=== PATIENT | female | born 1940 | race Caucasian/White ===

== ENCOUNTER 2018-11-02 15:01 | Observation (INO) | payer OTHER ==
[~2018-11-02] VITALS: Ht 165.1 cm; Wt 82.0 kg
[~2018-11-02 15:01] MED LIST: AMOCLA875 PO; ASPI325 PO; ASPI325EC PO; ASPI81EC PO; CITRUS BIOFLAV120 GM; ESTRTP; Echinacea80 MG; FISH1000; FLONASE ALLERG9.9 ML; FOLI1; GLIM2; Glucophage1000 MG PO; INDO50 PO; LEVSOD50 PO; LORA.5; METFORMIN PO; METHOTREXATE IM; METHYLTREXATE INJ; Methotrexa25 MG/1 ML; Mucinex600 MG PO; OXYACE5T PO; PIOG15; PRED1; Super Calcium600 MG; Tobramycin60 MG/50 M IV; UBID10; VAGIFEM10 MCG; VICODIN 5-3001 EACH; WARF10 PO; WARF7.5 PO
[2018-11-02 16:01] LABS: BASOPHILS ABSOLUTE AUTO 0.03 K/mm3 (0.00-0.23); BASOPHILS PERCENT AUTO 1 % (0-2); EOSINOPHILS ABSOLUTE AUTO 0.06 K/mm3 (0.00-0.68); EOSINOPHILS PERCENT AUTO 1 % (0-6); Hematocrit 44.8 % (33.0-51.0); Hemoglobin 14.7 g/dL (11.5-16.0); IMMATURE GRAN ABSOLUTE AUTO 0.06 K/mm3 (0.00-0.10); IMMATURE GRAN PERCENT AUTO 1 % (0-1); LYMPHOCYTES ABSOLUTE AUTO 0.89 K/mm3 (0.84-5.20); LYMPHOCYTES PERCENT AUTO 15 % (21-46); MONOCYTES ABSOLUTE AUTO 0.33 K/mm3 (0.16-1.47); MONOCYTES PERCENT AUTO 5 % (4-13); Mean Corpuscular HGB 34.8 pg (26.0-34.0); Mean Corpuscular HGB Conc 32.8 g/dL (31.5-36.5); Mean Corpuscular Volume 106 fL (80-100); NEUTROPHILS PERCENT AUTO 77 % (41-73); NRBC ABSOLUTE 0.02 K/mm3 (0.00-0.02); NRBC Auto 0.3 /100 WBC (0.0-0.2); Platelet Count 130 K/mm3 (150-400); RDW Coefficient Variation 17.3 % (11.7-14.2); RDW Standard Deviation 65.5 fL (35.1-46.3); Red Blood Cell Count 4.22 M/mm3 (3.80-5.20); White Blood Cell Count 6.07 K/mm3 (4.00-11.30)
[2018-11-02 16:21] LABS: International Normalized Ratio 1.28; Prothrombin Time Results 13.3 Sec (9.7-11.5)
[2018-11-02 16:23] LABS: Alanine Aminotransfer (ALT/SGP 58 U/L (12-78); Albumin, Blood 3.4 g/dL (3.4-5.0); Albumin/Globulin Ratio 0.8 (0.8-1.8); Alk Phos 112 U/L (50-136); Anion Gap 10 mmol/L (6-16); Aspartate Aminotrans (AST/SGOT 50 U/L (12-37); Blood Urea Nitrogen 15 mg/dL (8-24); Bun/Creatinine Ratio 21.3 (12.0-20.0); CO2, Blood 28 mmol/L (21-32); Calcium, Blood 9.4 mg/dL (8.5-10.1); Chloride, Blood 102 mmol/L (98-108); Globulin, Blood 4.2 g/dL (2.2-4.0); Glomerular Filtration Rate >60 (60-); Glucose, Blood 131 mg/dL (70-99); Sodium, Blood 140 mmol/L (136-145); Total Protein, Blood 7.6 g/dL (6.4-8.2); Troponin I <0.015 ng/mL (0.000-0.040)
[2018-11-02] MEDS ORDERED: WARF5 PO (16:28)
[2018-11-02 16:55] LABS: Source, Urine Clean Catch
[2018-11-02 16:58] LABS: Bilirubin, Urine Neg (Neg); Blood, Urine 2+ (Neg); Glucose Qualitative, Urine Neg (Neg); Ketones, Urine 2+ (Neg); Leukocyte Esterase, Urine 3+ (Neg); Nitrite, Urine Pos (Neg); Protein, Urine 2+ (Neg); Specific Gravity, Urine 1.025 (1.003-1.022); Urobilinogen, Urine NORM (Normal)
[2018-11-02 17:40] LABS: Appearance, Urine Cloudy (Clear); Color, Urine Yellow (P-Yellow)
[2018-11-02 17:41] LABS: Bacteria Many /hpf; Squamous Epithelial Cells Mod /hpf (Few); White Blood Cells, Urine 25-50 /hpf (0-5)
[2018-11-02] MEDS ORDERED: METTREX2.5 PO (18:30)
[2018-11-02] MEDS ORDERED: WARF2.5 PO (19:13)
[2018-11-02] MEDS ORDERED: Norco 5-325 Ta1 EACH PO (19:16)
[2018-11-02] MEDS ORDERED: Hair, Skin & N1 EACH PO (21:14)
[2018-11-02] MEDS ORDERED: NATURE'S TEARS15 M1 BOTHEYES (21:15)
[2018-11-02] MEDS ORDERED: NASAL DECONGEST15 ML (21:16)
[2018-11-02 21:31] LABS: Source, Urine Catheter
[2018-11-02 21:43] LABS: Appearance, Urine Cloudy (Clear); Bilirubin, Urine Neg (Neg); Blood, Urine 2+ (Neg); Color, Urine Yellow (P-Yellow); Glucose Qualitative, Urine Neg (Neg); Ketones, Urine 1+ (Neg); Leukocyte Esterase, Urine 3+ (Neg); Nitrite, Urine Pos (Neg); Protein, Urine 2+ (Neg); Specific Gravity, Urine 1.015 (1.003-1.022); Urobilinogen, Urine NORM (Normal); pH, Urine 6.5 (5.0-8.0)
[2018-11-02 21:51] LABS: Bacteria Many /hpf; Red Blood Cells, Urine 0-2 /hpf (0-2); Squamous Epithelial Cells Few /hpf (Few); White Blood Cells, Urine 25-50 /hpf (0-5)
--- NOTE | 2018-11-03 04:30 | NUR ---
Shift summary: Pt admitted last pm with intractible back pain s/p falls left shoulder and side and UTI. Urine sample sent was positive for UTI and MD notified. Pt started on mefoxitin. Pt confused and forgetful. Pt has large multicolored bruise left shoulder which is very tender to touch. Oxycodone giving some pain relief. Pt having to get q 1 hour to urinate. Urine cloudy and foul smelling. Pt requires one person assist to get up to bed side commode. Pt refusing tylenol- states it makes her sick.
[2018-11-03 05:18] LABS: BASOPHILS ABSOLUTE AUTO 0.03 K/mm3 (0.00-0.23); BASOPHILS PERCENT AUTO 1 % (0-2); EOSINOPHILS ABSOLUTE AUTO 0.14 K/mm3 (0.00-0.68); EOSINOPHILS PERCENT AUTO 3 % (0-6); Hematocrit 37.9 % (33.0-51.0); Hemoglobin 12.2 g/dL (11.5-16.0); IMMATURE GRAN ABSOLUTE AUTO 0.03 K/mm3 (0.00-0.10); IMMATURE GRAN PERCENT AUTO 1 % (0-1); LYMPHOCYTES ABSOLUTE AUTO 1.07 K/mm3 (0.84-5.20); LYMPHOCYTES PERCENT AUTO 23 % (21-46); MONOCYTES ABSOLUTE AUTO 0.52 K/mm3 (0.16-1.47); MONOCYTES PERCENT AUTO 11 % (4-13); Mean Corpuscular HGB 34.4 pg (26.0-34.0); Mean Corpuscular HGB Conc 32.2 g/dL (31.5-36.5); Mean Corpuscular Volume 107 fL (80-100); Mean Platelet Volume 10.4 fL (9.1-12.4); NEUTROPHILS ABSOLUTE AUTO 2.91 K/mm3 (1.96-9.15); NEUTROPHILS PERCENT AUTO 62 % (41-73); NRBC ABSOLUTE 0.02 K/mm3 (0.00-0.02); NRBC Auto 0.4 /100 WBC (0.0-0.2); Platelet Count 107 K/mm3 (150-400); RDW Coefficient Variation 17.7 % (11.7-14.2); RDW Standard Deviation 65.3 fL (35.1-46.3); Red Blood Cell Count 3.55 M/mm3 (3.80-5.20)
[2018-11-03 05:39] LABS: International Normalized Ratio 1.63; Prothrombin Time Results 16.5 Sec (9.7-11.5)
[2018-11-03 05:57] LABS: Anion Gap 7 mmol/L (6-16); Blood Urea Nitrogen 14 mg/dL (8-24); Bun/Creatinine Ratio 19.1 (12.0-20.0); CO2, Blood 28 mmol/L (21-32); Calcium, Blood 8.2 mg/dL (8.5-10.1); Chloride, Blood 107 mmol/L (98-108); Creatinine, Blood 0.73 mg/dL (0.40-1.00); Glomerular Filtration Rate >60 (60-); Glucose, Blood 131 mg/dL (70-99); Potassium, Blood 3.9 mmol/L (3.5-5.5); Sodium, Blood 142 mmol/L (136-145)
--- NOTE | 2018-11-03 15:02 | NUR ---
PT IS ALERT AND ORIENTED AND COOPERATIVE WITH CARE. SHE HAS COMPLAINED OF BACK PAIN TODAY, TREATED WITH NORCO. SHE HAD A SHOWER THIS AFTERNOON. HER IS NOW IN THE ROOM WITH THE PATIENT. PT AND OT BOTH SAW THE PT THIS MORNING AND RECCOMENDED REHAB. AT THIS TIME, CASE MANAGEMENT IS WAITING FOR THE PT'S INSURANCE TO DETERMINE IF THE PT CAN DISCHARGE TO [facility] OR NOT. WILL CONTINUE TO MONITOR.
[2018-11-03] MEDS ORDERED: Senna-Docusate1 EACH PO (15:56)
[2018-11-03] MEDS ORDERED: XARELTO15 MG PO (15:56)
[2018-11-03] MEDS ORDERED: CEFU500T30 PO (16:02)
--- NOTE | 2018-11-03 16:52 | NUR ---
CALLED RN AT [facility] TO NORA REPORT ON THE PATIENT. IS AT THE BEDSIDE. TRANSPORTATION IS SCHEDULED TO PICK THE PT UP AT 1700. WILL CONTINUE TO MONITOR.
--- NOTE | 2018-11-03 17:22 | NUR ---
PT DISCHARGED AT 8432 11/03/18. TRANSPORTED BY [facility].
== END 2018-11-03 17:31 ==
LOC: ER 15:01 → MEDS 15:02 → ENPENDDIS 11-03 15:58 → MEDS 11-03 17:31
PROVIDERS: Nurse Practitioner Acute Care; Physician Assistant; ADMIT Internal Medicine
DX: S32.019A Unspecified fracture of first lumbar vertebra, initial encounter for closed fracture (principal); N39.0 Urinary tract infection, site not specified; E11.9 Type 2 diabetes mellitus without complications; M81.0 Age-related osteoporosis without current pathological fracture; M06.9 Rheumatoid arthritis, unspecified; M25.512 Pain in left shoulder; R58 Hemorrhage, not elsewhere classified; D69.6 Thrombocytopenia, unspecified; I82.90 Acute embolism and thrombosis of unspecified vein; E03.9 Hypothyroidism, unspecified; I50.32 Chronic diastolic (congestive) heart failure; Z79.01 Long term (current) use of anticoagulants; Z79.899 Other long term (current) drug therapy; Z88.0 Allergy status to penicillin; Z88.2 Allergy status to sulfonamides; Z88.5 Allergy status to narcotic agent
CPT/HCPCS: 36415; 70450; 72070; 73030; 80048; 80053; 81001; 82947; 83735; 84443; 84484; 85025; 85610; 87077; 87086; 87186; 93005; 93010; 96361; 96365; 96366; 96374; 96375; 97116; 97162; 97166; 97530; 99285-25; A9270-GY; G0378; J0694; J2405; J3010; J7030

== ENCOUNTER 2018-11-20 19:29 | Inpatient (IN) | payer OTHER ==
[~2018-11-20] VITALS: Ht 167.6 cm; Wt 75.1 kg
[~2018-11-20 19:29] MED LIST changes: +CEFU500T30 PO; +Hair, Skin & N1 EACH PO; +METTREX2.5 PO; +NASAL DECONGEST15 ML; +NATURE'S TEARS15 M1 BOTHEYES; +Norco 5-325 Ta1 EACH PO; +Senna-Docusate1 EACH PO; +WARF2.5 PO; +WARF5 PO; +XARELTO15 MG PO
[2018-11-20 21:33] LABS: Source, Urine Clean Catch
[2018-11-20 21:34] LABS: BASOPHILS ABSOLUTE AUTO 0.02 K/mm3 (0.00-0.23); BASOPHILS PERCENT AUTO 0 % (0-2); EOSINOPHILS ABSOLUTE AUTO 0.03 K/mm3 (0.00-0.68); EOSINOPHILS PERCENT AUTO 0 % (0-6); Hematocrit 41.2 % (33.0-51.0); Hemoglobin 13.4 g/dL (11.5-16.0); IMMATURE GRAN ABSOLUTE AUTO 0.02 K/mm3 (0.00-0.10); IMMATURE GRAN PERCENT AUTO 0 % (0-1); LYMPHOCYTES ABSOLUTE AUTO 0.78 K/mm3 (0.84-5.20); LYMPHOCYTES PERCENT AUTO 11 % (21-46); MONOCYTES PERCENT AUTO 4 % (4-13); Mean Corpuscular HGB Conc 32.5 g/dL (31.5-36.5); Mean Corpuscular Volume 108 fL (80-100); Mean Platelet Volume 10.6 fL (9.1-12.4); NEUTROPHILS ABSOLUTE AUTO 5.79 K/mm3 (1.96-9.15); NEUTROPHILS PERCENT AUTO 84 % (41-73); Platelet Count 333 K/mm3 (150-400); RDW Coefficient Variation 18.4 % (11.7-14.2); RDW Standard Deviation 70.9 fL (35.1-46.3); Red Blood Cell Count 3.83 M/mm3 (3.80-5.20); White Blood Cell Count 6.94 K/mm3 (4.00-11.30)
[2018-11-20 21:36] LABS: Bilirubin, Urine Neg (Neg); Blood, Urine 2+ (Neg); Glucose Qualitative, Urine Neg (Neg); Ketones, Urine 3+ (Neg); Leukocyte Esterase, Urine 3+ (Neg); Nitrite, Urine Neg (Neg); Protein, Urine 1+ (Neg); Urobilinogen, Urine NORM (Normal)
[2018-11-20 21:42] LABS: Color, Urine Yellow (P-Yellow)
[2018-11-20 21:43] LABS: Amorphous Light (0-Heavy); Appearance, Urine Clear (Clear); Bacteria Few /hpf; Red Blood Cells, Urine 0-2 /hpf (0-2); Squamous Epithelial Cells Few /hpf (Few); Transitional Epithelial Cells Few /hpf (0-Rare)
[2018-11-20 21:58] LABS: Alanine Aminotransfer (ALT/SGP 29 U/L (12-78); Albumin, Blood 3.2 g/dL (3.4-5.0); Albumin/Globulin Ratio 0.9 (0.8-1.8); Alk Phos 162 U/L (50-136); Anion Gap 6 mmol/L (6-16); Aspartate Aminotrans (AST/SGOT 34 U/L (12-37); Bilirubin, Total 0.9 mg/dL (0.1-1.0); Blood Urea Nitrogen 13 mg/dL (8-24); CO2, Blood 33 mmol/L (21-32); Calcium, Blood 8.8 mg/dL (8.5-10.1); Chloride, Blood 102 mmol/L (98-108); Creatinine, Blood 0.77 mg/dL (0.40-1.00); Globulin, Blood 3.4 g/dL (2.2-4.0); Glomerular Filtration Rate >60 (60-); Glucose, Blood 159 mg/dL (70-99); Potassium, Blood 3.9 mmol/L (3.5-5.5); Sodium, Blood 141 mmol/L (136-145); Total Protein, Blood 6.6 g/dL (6.4-8.2)
--- NOTE | 2018-11-21 02:47 | NUR ---
PT ARRIVED TO FLOOR VIA STRETCHER.
[2018-11-21 04:19] LABS: Hematocrit 42.8 % (33.0-51.0); Hemoglobin 13.8 g/dL (11.5-16.0); Mean Corpuscular HGB 35.1 pg (26.0-34.0); Mean Corpuscular HGB Conc 32.2 g/dL (31.5-36.5); Mean Corpuscular Volume 109 fL (80-100); Mean Platelet Volume 10.5 fL (9.1-12.4); Platelet Count 330 K/mm3 (150-400); RDW Standard Deviation 71.9 fL (35.1-46.3); Red Blood Cell Count 3.93 M/mm3 (3.80-5.20); White Blood Cell Count 7.97 K/mm3 (4.00-11.30)
[2018-11-21 04:38] LABS: Alanine Aminotransfer (ALT/SGP 30 U/L (12-78); Albumin, Blood 3.3 g/dL (3.4-5.0); Albumin/Globulin Ratio 0.9 (0.8-1.8); Alk Phos 171 U/L (50-136); Anion Gap 7 mmol/L (6-16); Aspartate Aminotrans (AST/SGOT 35 U/L (12-37); Blood Urea Nitrogen 11 mg/dL (8-24); Bun/Creatinine Ratio 13.8 (12.0-20.0); CO2, Blood 32 mmol/L (21-32); Chloride, Blood 101 mmol/L (98-108); Globulin, Blood 3.7 g/dL (2.2-4.0); Glomerular Filtration Rate >60 (60-); Glucose, Blood 152 mg/dL (70-99); Potassium, Blood 3.7 mmol/L (3.5-5.5); Sodium, Blood 140 mmol/L (136-145)
[2018-11-21 04:52] LABS: International Normalized Ratio 1.09; Prothrombin Time Results 11.5 Sec (9.7-11.5)
--- NOTE | 2018-11-21 07:49 | NUR ---
SHIFT SUMMARY PT NEW ADMIT TO FLOOR THIS AM & HAS HAD LITTLE SLEEP T/O NIGHT. AOX4, FOLLOWS DIRECTIONS, IS IRRITABLE W/STAFF @TIMES DUE TO NOT GETTING ENOUGH SLEEP. DENIES SOB OR ANY NAUSEA/EMESIS SINCE COMING TO FLOOR. REPORTS 5/10 PAIN IN LLQ ABD & STATES PAIN IS WORSE W/MOVEMENT. CALL LIGHT IS IN REACH.
--- NOTE | 2018-11-21 15:11 | NUR ---
PT REPORTS DIZZINESS WHEN SITTING ANS STANDING, ORTHOSTATIC VITALS COMPLETED, NOTIFIED DR BUSH, NO NEW ORDERS, WILL CONTINUE TO MONITOR
--- NOTE | 2018-11-21 17:16 | NUR ---
SHIFT SUMMARY PT A&OX4. IRRITABLE AT TIMES. PT 1 PERSON ASSIST TO BSC. PT RESTING IN BED DURING SHIFT. PT REPORTING DIZZINESS THIS AFTERNOON, ORTHOSTATIC VITALS POSITIVE, NOTIFIED DR SO, 1L BOLUS GIVEN PER ORDERS. PT REPORTS PAIN IN LEFT HIP, LOWER BACK AND TENDERNESS IN LLQ, MEDICATED PER EMAR. PT ON RA, SOB WITH EXERTION. PT REPORTS NAUSEA, PT STATES STARTS AND INCREASES WITH THE PAIN, MEDICATED PER EMAR. PT ATTEMPTS TO DRINK CLEAR LIQUIDS, APPEARS TO BE TOLERATING WELL. PT REFUSING TO WORK WITH PHYSICAL THERAPY DURING SHFIT. OTHER VSS. NO OTHER ACUTE CHANGES NOTED DURING SHIFT. WILL CONTINUE TO MONITOR UNTIL REPORT GIVNE TO ONCOMING RN.
[2018-11-22 05:34] LABS: BASOPHILS ABSOLUTE AUTO 0.05 K/mm3 (0.00-0.23); BASOPHILS PERCENT AUTO 1 % (0-2); EOSINOPHILS PERCENT AUTO 1 % (0-6); Hematocrit 39.6 % (33.0-51.0); Hemoglobin 12.8 g/dL (11.5-16.0); IMMATURE GRAN ABSOLUTE AUTO 0.06 K/mm3 (0.00-0.10); IMMATURE GRAN PERCENT AUTO 1 % (0-1); LYMPHOCYTES ABSOLUTE AUTO 1.03 K/mm3 (0.84-5.20); LYMPHOCYTES PERCENT AUTO 10 % (21-46); MONOCYTES PERCENT AUTO 6 % (4-13); Mean Corpuscular HGB 35.7 pg (26.0-34.0); Mean Corpuscular HGB Conc 32.3 g/dL (31.5-36.5); Mean Corpuscular Volume 110 fL (80-100); Mean Platelet Volume 10.7 fL (9.1-12.4); NEUTROPHILS ABSOLUTE AUTO 8.73 K/mm3 (1.96-9.15); NEUTROPHILS PERCENT AUTO 83 % (41-73); NRBC ABSOLUTE 0.02 K/mm3 (0.00-0.02); NRBC Auto 0.2 /100 WBC (0.0-0.2); Platelet Count 264 K/mm3 (150-400); RDW Coefficient Variation 18.2 % (11.7-14.2); RDW Standard Deviation 73.3 fL (35.1-46.3); Red Blood Cell Count 3.59 M/mm3 (3.80-5.20); White Blood Cell Count 10.57 K/mm3 (4.00-11.30)
[2018-11-22 05:53] LABS: Anion Gap 7 mmol/L (6-16); Blood Urea Nitrogen 8 mg/dL (8-24); Bun/Creatinine Ratio 11.7 (12.0-20.0); CO2, Blood 26 mmol/L (21-32); Calcium, Blood 8.2 mg/dL (8.5-10.1); Chloride, Blood 107 mmol/L (98-108); Creatinine, Blood 0.69 mg/dL (0.40-1.00); Glomerular Filtration Rate >60 (60-); Glucose, Blood 84 mg/dL (70-99); Potassium, Blood 3.5 mmol/L (3.5-5.5); Sodium, Blood 140 mmol/L (136-145)
--- NOTE | 2018-11-22 06:25 | NUR ---
SHIFT SUMMARY PT SLEPT WELL LAST NIGHT. AOX4. DENIES NAUSEA OR SOB. FREQUENTLY REPORTS SHE IS IN PAIN RANGING 2-5/10 IN LLQ ABD/L HIP & GROIN, MEDICATED 3X W/FENTANYL & 2X W/ULTRAM PER ORDERS. REPORTS VERY LITTLE RELIEF FROM PAIN MEDICATION & STATES "IT DOES NOT SEEM TO BE WORKING," HOWEVER WHEN REASSESSED PT REPORTS PAIN DOWN TO A 1-2/10. I DISCUSSED W/PT WHAT HER PAIN GOAL WAS & SHE REPORTED "WELL THE MEDICATION ISN'T TAKING AWAY ALL MY PAIN," I INFORMED PT WE WOULDN'T BE ABLE TO TAKE AWAY ALL HER PAIN. PT HAS BEEN INCONTINENT T/O NIGHT & APPEARS VERY UNMOTIVATED TO GET OOB OR HELP W/MUCH OF HER OWN CARE & WANTS STAFF TO PERFORM LITTLE TASKS, WHEN THE NIGHT BEFORE PT WAS ABLE TO GET UP & USE BSC W/SBA. I ASKED IF PT KNEW WHEN SHE HAD THE URGE TO USE RESTROOM & SHE SAID "YES," I ENCOURAGED PT IT WAS GOOD TO MOVE AROUND/GET UP & PERFORM SOME OF OWN CARE TO KEEP HER STRENGTH UP. CALL LIGHT IS IN REACH & I WILL CONTINUE TO MONITOR PT.
--- NOTE | 2018-11-22 18:08 | NUR ---
SHIFT SUMMARY PT A&Ox4, COOPERATIVE WITH CARE. PT RESTING IN BED DURING SHIFT, UP IN CHAIR THIS AFTERNOON AFTER WORKING WITH PT/OT. 1 PERSON SBA WITH FWW IN ROOM. PT REPORTS PAIN IN LEFT HIP AND LLQ TENDERNESS, MEDICATED PER EMAR. HIP XRAY COMPLETED DURING SHIFT. PT SOB WITH EXERTION,>90% ON RA. PT DENIES N/V, CONTINUES TO HAVE POOR APPETITE, PT ENCOURAGED TO EAT AND DRINK PLENTLY OF FLUIDS. URINE AND RECTAL SWAB COLLECTED DURING SHIFT TO START ESBL CLEARING PROCESS. ELEVATED BP NOTED, CLARIFIED THE APRESSOLINE ORDER WITH DR BUSH THE PATIENT HAD POSITIVE ORTHOSTATIC HYPOTENSION YESTERDAY, DR BUSH NO NEW ORDERS AND CONTINUE TO USE MEDICATION. OTHER VSS. NO OTHER ACUTE CHANES NOTED DURING SHIFT. WILL CONTINUE TO MONITOR UNTIL REPORT GIVEN TO ONCOMING RN.
[2018-11-23 05:12] LABS: Albumin, Blood 2.8 g/dL (3.4-5.0); Anion Gap 6 mmol/L (6-16); Blood Urea Nitrogen 6 mg/dL (8-24); Bun/Creatinine Ratio 9.4 (12.0-20.0); CO2, Blood 28 mmol/L (21-32); Calcium, Blood 8.6 mg/dL (8.5-10.1); Chloride, Blood 106 mmol/L (98-108); Creatinine, Blood 0.64 mg/dL (0.40-1.00); Glomerular Filtration Rate >60 (60-); Glucose, Blood 119 mg/dL (70-99); Phosphorus, Blood 3.8 mg/dL (2.5-4.9); Potassium, Blood 3.5 mmol/L (3.5-5.5); Sodium, Blood 140 mmol/L (136-145)
--- NOTE | 2018-11-23 06:51 | NUR ---
11/23/18 0550 SLEEPING WELL AFTER PAIN MED. VITALS BETTER THIS AM. BP DOWN. ENCOURAGE ORAL INTAKE OF FLUIDS/FOOD BUT HAS POOR MOTIVATION TO PARTICIPATE IN PLAN OF CARE.
--- NOTE | 2018-11-23 18:23 | NUR ---
SHIFT SUMMARY JABIER COMPLAINED OF PAIN IN HER L HIP/GROIN AREA AND RECEIVED TRAMADOL. WORKED WITH PT AND OT. GOT UP TO CHAIR X1 AND WALKED TO BR A COUPLE TIMES WITH SBA WITH WALKER. POOR APETITE. HAD BM THIS SHIFT, UNABLE TO GET SAMPLE. ORTHO CONSULT CALLED FOR DISPLACED CLAVICLE FRACTURE. WCTM
--- NOTE | 2018-11-24 07:47 | NUR ---
11/24/18 0600 SLEEPING WELL THIS AM. VITALS STABLE. UNEVENTFUL NIGHT. UP TO BSC PER SELF.
--- NOTE | 2018-11-24 16:57 | NUR ---
PT A/OX3, PLEASANT AND COOPERATIVE, THE PT APPEARS TO BE BREATHING EASILY ON RA AT THIS TIME, THE PT IS UP WITH MINIMAL ASSIST, THE PT WAS MEDICATED FOR PAIN X2 TODAY, THE PT IS AWAITNG CONSULT FROM ORTHOPEDIC AT THIS TIME, THE CONSULT WAS RECALLED TODAY AROUND [address] BURTON OFFICE, CALL LIGHT IN REACH WILL CONTINUE TO MONITOR AND ASESS FOR CHANGES
--- NOTE | 2018-11-25 05:18 | NUR ---
SHIFT SUMMARY: PT IS ALERT AND ORIENTED. PT IS CALM AND COOPERATIVE WITH CARE. PT CALLS APPROPRIATELY. PT IS UP INDEPENDENTLY IN THE ROOM. PT SLEPT MUCH OF THE NIGHT WHEN NOT DISTURBED. PT DENIES PAIN, NAUSEA, VOMITING, AND SOB. POSSIBLE DC TODAY. NO ACUTE CHANGES OR COMPLICATIONS THIS SHIFT. BED IN LOW POSITION, CALL LIGHT WITHIN REACH. WILL REPORT TO DAY NURSE.
[2018-11-25 05:57] LABS: BASOPHILS ABSOLUTE AUTO 0.04 K/mm3 (0.00-0.23); BASOPHILS PERCENT AUTO 1 % (0-2); EOSINOPHILS ABSOLUTE AUTO 0.19 K/mm3 (0.00-0.68); EOSINOPHILS PERCENT AUTO 3 % (0-6); Hematocrit 42.4 % (33.0-51.0); IMMATURE GRAN ABSOLUTE AUTO 0.03 K/mm3 (0.00-0.10); IMMATURE GRAN PERCENT AUTO 1 % (0-1); LYMPHOCYTES ABSOLUTE AUTO 1.09 K/mm3 (0.84-5.20); LYMPHOCYTES PERCENT AUTO 18 % (21-46); MONOCYTES ABSOLUTE AUTO 0.97 K/mm3 (0.16-1.47); MONOCYTES PERCENT AUTO 16 % (4-13); Mean Corpuscular HGB 35.7 pg (26.0-34.0); Mean Corpuscular Volume 108 fL (80-100); Mean Platelet Volume 11.1 fL (9.1-12.4); NEUTROPHILS ABSOLUTE AUTO 3.75 K/mm3 (1.96-9.15); NEUTROPHILS PERCENT AUTO 62 % (41-73); Platelet Count 172 K/mm3 (150-400); RDW Coefficient Variation 18.6 % (11.7-14.2); Red Blood Cell Count 3.92 M/mm3 (3.80-5.20); White Blood Cell Count 6.07 K/mm3 (4.00-11.30)
[2018-11-25 06:21] LABS: Albumin, Blood 2.9 g/dL (3.4-5.0); Anion Gap 2 mmol/L (6-16); Blood Urea Nitrogen 7 mg/dL (8-24); Bun/Creatinine Ratio 9.5 (12.0-20.0); CO2, Blood 33 mmol/L (21-32); Calcium, Blood 8.7 mg/dL (8.5-10.1); Chloride, Blood 103 mmol/L (98-108); Creatinine, Blood 0.74 mg/dL (0.40-1.00); Glomerular Filtration Rate >60 (60-); Glucose, Blood 127 mg/dL (70-99); Phosphorus, Blood 3.8 mg/dL (2.5-4.9); Potassium, Blood 3.1 mmol/L (3.5-5.5); Sodium, Blood 138 mmol/L (136-145)
[2018-11-25] MEDS ORDERED: BISA10S PR (09:02)
[2018-11-25] MEDS ORDERED: DOCU100 PO (09:02)
[2018-11-25] MEDS ORDERED: ONDA4ODT MM (09:03)
[2018-11-25] MEDS ORDERED: Tears Again15 ML BOTHEYES (09:04)
[2018-11-25] MEDS ORDERED: Florastor250 MG PO (09:04)
[2018-11-25] MEDS ORDERED: Calcitonin-Sal3.7 ML (09:05)
[2018-11-25] MEDS ORDERED: Micro-K10 MEQ PO (09:06)
[2018-11-25] MEDS ORDERED: CALCIUM 500 +1 EAC3 PO (09:07)
--- NOTE | 2018-11-25 11:44 | NUR ---
PT DISCHARGED PT VERBALIZED UNDERSTANDING OF THE DC INSTRUCTIONS, THE PTS PERSCRIPTIONS WERE FAXED TO [facility] REQUESTED, PRESCRIPTIONS WERE GIVEN TO THE PT ALSO, HOME HEALTH WAS NOTIFIED BY CARE MANAGMENT, THE PT WAS TRANSFERED VIA WHEELCHAIR ACCOMPANIED BY [facility] AND , THE PT WAS A/OX3 AND APPEARED TO BE BREATHING EASILY ON RA
== END 2018-11-25 11:28 | disposition home health service (06) | DRG 392 ==
LOC: ER 19:29 → MEDS 19:30 → ER 19:30 → MEDS 11-21 02:30 → ENPENDDIS 11-25 10:44 → MEDS 11-25 11:28
PROVIDERS: Emergency Medicine; Family Medicine; Internal Medicine; ADMIT Internal Medicine
DX: K52.9 Noninfective gastroenteritis and colitis, unspecified (principal); S32.019A Unspecified fracture of first lumbar vertebra, initial encounter for closed fracture; I50.32 Chronic diastolic (congestive) heart failure; G89.11 Acute pain due to trauma; E03.9 Hypothyroidism, unspecified; E11.9 Type 2 diabetes mellitus without complications; M06.9 Rheumatoid arthritis, unspecified; Z87.440 Personal history of urinary (tract) infections; W19.XXXA Unspecified fall, initial encounter; Z91.81 History of falling; Z87.891 Personal history of nicotine dependence; S42.032A Displaced fracture of lateral end of left clavicle, initial encounter for closed fracture; E86.0 Dehydration; Z66 Do not resuscitate
CPT/HCPCS: 36415; 73502; 74177; 80048; 80053; 80069; 81001; 83605; 83690; 85025; 85027; 85610; 87081; 87086; 96374-59; 96375; 96376; 97162; 97166; 97530; 97535; 99285-25; J0360; J2405; J3010; J7030; Q9967

== ENCOUNTER 2019-05-31 19:29 | Inpatient (IN) | payer OTHER ==
[~2019-05-31] VITALS: Ht 157.5 cm; Wt 74.7 kg
[~2019-05-31 19:29] MED LIST changes: +ARTIFICIAL TEA1 EACH BOTHEYES; +BISA10S PR; +CALCIUM 500 +1 EAC3 PO; +Calcitonin-Sal3.7 ML; +DOCU100 PO; +Florastor250 MG PO; +Micro-K10 MEQ PO; +ONDA4ODT MM
[2019-05-31 21:13] LABS: BASOPHILS ABSOLUTE AUTO 0.04 K/mm3 (0.00-0.23); BASOPHILS PERCENT AUTO 1 % (0-2); EOSINOPHILS ABSOLUTE AUTO 0.04 K/mm3 (0.00-0.68); EOSINOPHILS PERCENT AUTO 1 % (0-6); Hematocrit 44.7 % (33.0-51.0); Hemoglobin 14.1 g/dL (11.5-16.0); Mean Corpuscular HGB 35.7 pg (26.0-34.0); Mean Corpuscular HGB Conc 31.5 g/dL (31.5-36.5); Mean Corpuscular Volume 113 fL (80-100); Mean Platelet Volume 11.9 fL (9.1-12.4); Platelet Count 142 K/mm3 (150-400); RDW Coefficient Variation 15.7 % (11.7-14.2); RDW Standard Deviation 66.3 fL (35.1-46.3); Red Blood Cell Count 3.95 M/mm3 (3.80-5.20); White Blood Cell Count 7.63 K/mm3 (4.00-11.30)
[2019-05-31 21:14] LABS: IMMATURE GRAN ABSOLUTE AUTO 0.02 K/mm3 (0.00-0.10); IMMATURE GRAN PERCENT AUTO 0 % (0-1); LYMPHOCYTES ABSOLUTE AUTO 0.82 K/mm3 (0.84-5.20); LYMPHOCYTES PERCENT AUTO 11 % (21-46); MONOCYTES ABSOLUTE AUTO 0.22 K/mm3 (0.16-1.47); MONOCYTES PERCENT AUTO 3 % (4-13); NEUTROPHILS ABSOLUTE AUTO 6.49 K/mm3 (1.96-9.15); NEUTROPHILS PERCENT AUTO 85 % (41-73)
[2019-05-31 21:26] LABS: Alanine Aminotransfer (ALT/SGP 39 U/L (12-78); Albumin, Blood 3.2 g/dL (3.4-5.0); Albumin/Globulin Ratio 0.8 (0.8-1.8); Alk Phos 113 U/L (50-136); Anion Gap 5 mmol/L (6-16); Aspartate Aminotrans (AST/SGOT 42 U/L (12-37); Bilirubin, Total 0.6 mg/dL (0.1-1.0); Blood Urea Nitrogen 19 mg/dL (8-24); Bun/Creatinine Ratio 25.9 (12.0-20.0); CO2, Blood 27 mmol/L (21-32); Calcium, Blood 8.7 mg/dL (8.5-10.1); Chloride, Blood 107 mmol/L (98-108); Creatinine, Blood 0.73 mg/dL (0.40-1.00); Glomerular Filtration Rate >60 (60-); Glucose, Blood 148 mg/dL (70-99); Potassium, Blood 4.3 mmol/L (3.5-5.5); Sodium, Blood 139 mmol/L (136-145); Total Protein, Blood 7.2 g/dL (6.4-8.2)
[2019-05-31 21:28] LABS: International Normalized Ratio 1.21; Prothrombin Time Results 12.6 Sec (9.7-11.5)
[2019-05-31] MEDS ORDERED: SENN187 PO (22:04)
[2019-05-31] MEDS ORDERED: VITAMIN D31000 UNI2 PO (22:05)
[2019-05-31] MEDS ORDERED: WARF5 PO (22:06)
--- NOTE | 2019-06-01 02:45 | NUR ---
2335 PT ADMITTED TO ROOM 313 PER CART FROM ER, PT POOR HISTORIAN AT TIMES DURING ASSESSMENT AND AT TIMES UNSURE IF SHE TOOK SOME MEDS OR DID NOT. HEPARIN INFUSING AT 15UNITS/KG/HR OR 18ML/HR PER PUMP, LLE + 3 EDEMA AND ELEVATED ON TWO PILLOWS, DENIES NEED FOR PAIN MEDS. PT WOULD BENEFIT FROM HAVING HOME HEALTH CARE REFERRAL AT DISCHARGE TO ASSIST WITH SETTING UP ALL MEDICATIONS VIA WEEKLY PILL BOX CHIEF EXECUTIVE.
--- NOTE | 2019-06-01 04:13 | NUR ---
SHIFT SUMMARY: 78 Y/O FEMALE RESTED COMFORTABLY ALL SHIFT, NO S/S BLEEDING NOTED, HEPARIN CONTINUES TO INFUSE AT 18ML/HR, LLE HAS +3 EDEMA NOTED WITH EXTREMITY ELEVATED ON TWO PILLOWS, BED ALARM APPLIED, BED LOW POSITION WITH CALL LIGHT AT SIDE.
[2019-06-01 05:19] LABS: BASOPHILS ABSOLUTE AUTO 0.04 K/mm3 (0.00-0.23); BASOPHILS PERCENT AUTO 1 % (0-2); EOSINOPHILS PERCENT AUTO 2 % (0-6); Hematocrit 39.4 % (33.0-51.0); Hemoglobin 12.6 g/dL (11.5-16.0); Mean Corpuscular Volume 113 fL (80-100); Platelet Count 117 K/mm3 (150-400); RDW Coefficient Variation 15.7 % (11.7-14.2); RDW Standard Deviation 64.6 fL (35.1-46.3); White Blood Cell Count 5.88 K/mm3 (4.00-11.30)
[2019-06-01 05:22] LABS: IMMATURE GRAN ABSOLUTE AUTO 0.01 K/mm3 (0.00-0.10); IMMATURE GRAN PERCENT AUTO 0 % (0-1); LYMPHOCYTES ABSOLUTE AUTO 1.16 K/mm3 (0.84-5.20); LYMPHOCYTES PERCENT AUTO 20 % (21-46); MONOCYTES ABSOLUTE AUTO 0.35 K/mm3 (0.16-1.47); MONOCYTES PERCENT AUTO 6 % (4-13); NEUTROPHILS ABSOLUTE AUTO 4.22 K/mm3 (1.96-9.15); NEUTROPHILS PERCENT AUTO 72 % (41-73)
[2019-06-01 05:43] LABS: Anion Gap 6 mmol/L (6-16); Blood Urea Nitrogen 17 mg/dL (8-24); Bun/Creatinine Ratio 22.3 (12.0-20.0); CO2, Blood 26 mmol/L (21-32); Calcium, Blood 8.3 mg/dL (8.5-10.1); Chloride, Blood 110 mmol/L (98-108); Creatinine, Blood 0.76 mg/dL (0.40-1.00); Glomerular Filtration Rate >60 (60-); Glucose, Blood 150 mg/dL (70-99); Potassium, Blood 3.9 mmol/L (3.5-5.5); Sodium, Blood 142 mmol/L (136-145)
--- NOTE | 2019-06-01 11:23 | NUR ---
Patient is lying in bed and alert. Patient shares about her meical issues, her family history and her Mandaeism background. I listen empathically and provide prayer. Patient responds well and voices appreciation for the visit.
--- NOTE | 2019-06-01 16:52 | NUR ---
SHIFT SUMMARY PATIENT DENIES PAIN IN LEG EXCEPT WHEN PALPATED. DENIES NAUSEA AND SHORTNESS OF BREATH. PATIENT UP SBA TO BEDSIDE COMMODE. PATIENT HAD FAMILY AT BEDSIDE TODAY. DR. JOHNSON CONSULTED ON PATIENT. PATIENT TO HAVE FILTER PLACED TODAY AND POSSIBLY CLOTS REMOVED TOMORROW. PATIENT IN PROCEDURE NOW.
--- NOTE | 2019-06-01 18:06 | NUR ---
TRANSFER PATIENT TRANSFERING TO PCU AFTER PROCEDURE COMPLETED. BELONGINGS TRANSFERED TO PCU.
--- NOTE | 2019-06-01 18:29 | NUR ---
The pt was received from [facility] this evening, vital signs stable, alert, oriented, and pleasantly conversant. Right groin site was visualized, noted to have clean, dry and intact dressing of gauze secured with clear tegederm. No signs of bleeding, hematoma, swelling, or bruising. Distal pulses are palpable. The pt initially denied any pain, but then said that her back was aching. She was placed in reverse trendelenberg position, with the right leg still imobilized and lying flat, and she said that this gave her relief right away.
--- NOTE | 2019-06-02 04:59 | NUR ---
SHIFT SUMMARY PT SLEEPING IN ROOM COMFORTABLY AT THIS TIME. NO ACUTE CHANGES IN STATUS T/O NIGHT PT SLEPT WELL, AND CALLED APPROPRIATELY. DENIED CP T/O NIGHT. PT FEMORAL VEIN ACCESS WNL NO DRAINAGE NOTED ON BANDAGE. PT REPORTS NO PAIN, AND SITE BREANNE OF DISOCLORATION OR HEMATOMA. PT ABLE TO STAND AND USE BSC W/ SBA. RESP EVEN UNLABORED ON RA W/ SATS >92%. DENIED ANY SOB. HEPARIN GTT INFUSING IN PIV. CALL LIGHT IN REACH.
--- NOTE | 2019-06-02 07:38 | NUR ---
ASSUMED CARE OF PT- REPORT RECIEVED FROM NIGHT TAZ CAO. PT ALERT AND ORIENTED WITH NO S&S OF DISTRESS NOTED NSR ON TELE. PER REPORT PT HAD A IVC FILTER PLACED YESTERDAY AND THE PLAN IS FOR HER TO [facility]ULAR[facility]ATION OF THE LEFT LEG. PT IS POSSITIVE FOR A DVT IN THAT LEG. PT CURRENTLY ON A HEPRIN DRIP AT 18 UNITS PER KG/HR. RATE CONFIRMED WITH [facility] BY PHONE, TAZ CAO PRESENT. PT HAS NO C/O PAIN AT THIS TIME WILL CONTINUE TO MONITOR. PT CONCERNED THAT HER WILL NOT BE HERE IN TIME FOR HER PROCEDURE, THEY LIVE IN [place] AND IT IS A LONG DRIVE, SHE WOULD LIKE TO KNOW A TIME FOR THE PROCEDURE SOON POSSIBLE.
--- NOTE | 2019-06-02 11:45 | NUR ---
Patient is lying in bed and alert. Patient tells me that she is going to have a second surgery today. Patient is doing well in the process but appreciates prayer. Patient tells me more about her family, her 64 year marriage her many medical issues through the years. Patient is kind and thoughful. I listen empathically and provide a calming prasence and prayer. Patient responds well and voices appreciation for my visit.
--- NOTE | 2019-06-02 12:57 | NUR ---
SPOKE TO DR LACY PT IS NPO PRE PROCEDURE AT THIS TIME. NEW ORDER PLACED.
[2019-06-02 18:49] LABS: International Normalized Ratio 1.16; Prothrombin Time Results 12.1 Sec (9.7-11.5)
--- NOTE | 2019-06-02 18:51 | NUR ---
SHIFT SUMMARY- PT ALERT AND ORIENTED, SPOUSE AT THE BEDSIDE. PT HAS BEEN NPO T/O THE SHIFT BG 129 AT BREAKFAST 128 AT LUNCH AND 100 AT DINNER REQUIRING NO COVERAGE. SPOKE TO DR LACY THIS EVENING DR JOHNSON UNABLE TO TAKE THE PT TO THE MERCHANDISE COORDINATOR PLANNED. DR LACY RESTARTING PT COUMADIN. ONCE SHE REACHES A THERAPUDIC LEVEL PT WILL BE DISCHARGED TO SEE DR JOHNSON OUT PT. PT HAS BEEN INFORMED OF THIS. DINNER TRAY ORDERED.
[2019-06-03 04:10] LABS: BASOPHILS ABSOLUTE AUTO 0.07 K/mm3 (0.00-0.23); BASOPHILS PERCENT AUTO 1 % (0-2); EOSINOPHILS ABSOLUTE AUTO 0.18 K/mm3 (0.00-0.68); EOSINOPHILS PERCENT AUTO 4 % (0-6); Hemoglobin 12.8 g/dL (11.5-16.0); IMMATURE GRAN ABSOLUTE AUTO 0.03 K/mm3 (0.00-0.10); IMMATURE GRAN PERCENT AUTO 1 % (0-1); LYMPHOCYTES ABSOLUTE AUTO 1.44 K/mm3 (0.84-5.20); LYMPHOCYTES PERCENT AUTO 28 % (21-46); MONOCYTES PERCENT AUTO 12 % (4-13); Mean Corpuscular Volume 112 fL (80-100); Mean Platelet Volume 11.4 fL (9.1-12.4); NEUTROPHILS ABSOLUTE AUTO 2.86 K/mm3 (1.96-9.15); NEUTROPHILS PERCENT AUTO 55 % (41-73); Platelet Count 120 K/mm3 (150-400); RDW Coefficient Variation 15.4 % (11.7-14.2); RDW Standard Deviation 64.6 fL (35.1-46.3); Red Blood Cell Count 3.56 M/mm3 (3.80-5.20); White Blood Cell Count 5.18 K/mm3 (4.00-11.30)
[2019-06-03 04:24] LABS: International Normalized Ratio 1.14; Prothrombin Time Results 11.9 Sec (9.7-11.5)
[2019-06-03 04:30] LABS: Bun/Creatinine Ratio 15.1 (12.0-20.0); Creatinine, Blood 1.06 mg/dL (0.40-1.00); Potassium, Blood 4.2 mmol/L (3.5-5.5)
--- NOTE | 2019-06-03 05:26 | NUR ---
SHIFT SUMMARY PT SLEEPING IN ROOM COMFORTABLY AT THIS TIME. NO ACUTE CHANGES IN STATUS T/O NIGHT. PT SLEPT WELL AND WOKE EASILY TO VERBAL. PT DENIED ANY CP OR SOB. RESP EVEN UNLABORED ON RA W/ SATS >92%. HEPARIN GTT CONT TO INFUSE IN PIV. PT STARTED ON HOME DOSE OF COUMADIN LAST NIGHT. PER PT HOME DOSE IS DIFFERENT AHT PREVIOUS MED CLAIM HISTORY. WILL INFORM DAY RN OF DISRECPENCY AND ABOUT NEED TO CALL PROVIDER OFFICE TO CLARIFY DOSE. DENIED OTHER NEEDS. PT SBA TO BSC, L LEG STILL EDEMATOUS D/T BLOOD CLOT. CALL LIGHT IS IN REACH.
--- NOTE | 2019-06-03 09:00 | NUR ---
PT READING IN BED; A&O X 3, FORGETFUL AT TIMES; LUNGS SOUNDS CLEAR; BREATHS EVEN AND UNLABORED; NO COUGH PRESENT; L LEG WARM AND SWOLLEN; VSS; PT DENIES CHEST PAIN; DENIES PAIN; HEPARIN GTT AT 20U/KG/HR; CALL LIGHT IN REACH, BED IN LOWEST POSITION; WILL CONTINUE TO MONITOR AND ASSESS
--- NOTE | 2019-06-03 14:30 | NUR ---
PT HAS VISITORS AT BEDSIDE; PT TALKING SHE SITS IN BED
--- NOTE | 2019-06-03 18:21 | NUR ---
PT WORKING ON CROSSWORD IN BED; PT ATE DINNER WELL; PT IS CALM AND COMPLIANT; CALL LIGHT IN REACH; WILL CONTINUE TO MONITOR UNTIL HAND OF TO KYARA MCGHEE
[2019-06-03 18:57] LABS: Source, Urine Voided
[2019-06-03 19:03] LABS: Bilirubin, Urine Neg (Neg); Blood, Urine 2+ (Neg); Glucose Qualitative, Urine Neg (Neg); Ketones, Urine Neg (Neg); Leukocyte Esterase, Urine 2+ (Neg); Nitrite, Urine Pos (Neg); Protein, Urine Neg (Neg); Specific Gravity, Urine 1.015 (1.003-1.022); Urobilinogen, Urine NORM (Normal)
[2019-06-03 19:12] LABS: Appearance, Urine Hazy (Clear); Color, Urine Yellow (P-Yellow)
[2019-06-03 19:13] LABS: Bacteria Many /hpf; Squamous Epithelial Cells Few /hpf (Few)
--- NOTE | 2019-06-03 19:58 | NUR ---
78 Y/O FEMALE RESTING COMFORTABLY IN BED, RIGHT GROIN TEGADERM INTACT WITH SURROUNDING SKIN AND TISSUE SOFT AND WITHOUT S/S INFECTION, HAPPY AND COOPERATIVE, DENIES PAIN OR NAUSEA, ABLE TO FOLLOW ALL SIMPLE VERBAL COMMANDS, HEPARIN AT 24ML/HR VIA PUMP IN LFA (NO BLEEDING NOTED).
--- NOTE | 2019-06-04 04:34 | NUR ---
SHIFT SUMMARY: 78 Y/O FEMALE RESTED COMFORTABLY ALL SHIFT WITH NO C/O PAIN, NAUSEA, NO BLEEDING NOTED, HEPARIN CONTINUES TO INFUSE AT 24ML/HR, PTS LFA OLD IV SITE SLIGHTLY RED, WARM AND TENDER TO TOUCH WITH ICE PACK APPLIED TO SITE (BAILEY RN, CHARGE NURSE ADVISED AND HE OBSERVED SITE), PT VOICED SHE EAGER TO RETURN HOME NEAR FUTURE, BED ALARM APPLIED, BED LOW POSITION WITH CALL LIGHT AT SIDE.
[2019-06-04 04:36] LABS: BASOPHILS ABSOLUTE AUTO 0.05 K/mm3 (0.00-0.23); BASOPHILS PERCENT AUTO 1 % (0-2); EOSINOPHILS ABSOLUTE AUTO 0.15 K/mm3 (0.00-0.68); EOSINOPHILS PERCENT AUTO 3 % (0-6); Hematocrit 42.4 % (33.0-51.0); Hemoglobin 13.7 g/dL (11.5-16.0); IMMATURE GRAN ABSOLUTE AUTO 0.02 K/mm3 (0.00-0.10); IMMATURE GRAN PERCENT AUTO 0 % (0-1); LYMPHOCYTES ABSOLUTE AUTO 1.24 K/mm3 (0.84-5.20); LYMPHOCYTES PERCENT AUTO 26 % (21-46); MONOCYTES ABSOLUTE AUTO 0.66 K/mm3 (0.16-1.47); MONOCYTES PERCENT AUTO 14 % (4-13); Mean Corpuscular HGB 35.1 pg (26.0-34.0); Mean Corpuscular HGB Conc 32.3 g/dL (31.5-36.5); Mean Platelet Volume 11.3 fL (9.1-12.4); NEUTROPHILS ABSOLUTE AUTO 2.73 K/mm3 (1.96-9.15); NEUTROPHILS PERCENT AUTO 56 % (41-73); Platelet Count 145 K/mm3 (150-400); RDW Coefficient Variation 15.7 % (11.7-14.2); RDW Standard Deviation 61.8 fL (35.1-46.3); White Blood Cell Count 4.85 K/mm3 (4.00-11.30)
[2019-06-04 04:37] LABS: Mean Corpuscular Volume 109 fL (80-100)
[2019-06-04 04:53] LABS: International Normalized Ratio 1.45; Prothrombin Time Results 14.9 Sec (9.7-11.5)
[2019-06-04 04:56] LABS: Bun/Creatinine Ratio 16.5 (12.0-20.0); Calcium, Blood 9.4 mg/dL (8.5-10.1); Creatinine, Blood 1.09 mg/dL (0.40-1.00); Potassium, Blood 4.4 mmol/L (3.5-5.5)
--- NOTE | 2019-06-04 10:11 | NUR ---
PT PLEASANT TALKATIVE. DENIES PAIN A/O X3. TALKED ABOUT PLACE OUT OF [facility]. L LEG DVT, STILL SWOLLEN. +2 , SOME PAINFUL. ON HEPARIN DRIP RATE PER EMAR. PRESENTS CONCRETE. SOME FORGETFUL AT TIMES PER BELL RN. H/R REG, NO MURMER NOTED. PER TELE NSR AT 78. LUNGS CLEAR T/O. RESP EASY, UNLABORED. ON R/A. BT X4 LAST BM THIS AM. VOIDS INCONT AT TIMES, FREQUENTCY. 1 ASSST TO BSC. BED IN LOW POSITION , CALL LITE IN REACH, CALLS APPROP
--- NOTE | 2019-06-04 12:38 | NUR ---
1130 REPORT CALLED TO HANNY FERNANDEZ RN. MEDICAL. PT MOVING TO MED NO TELE PER DR LACY. ADVISED IS ON HEPARIN DRIP AND NEXT DRAW IS SET FOR 13:00. PT MOVED AFTER LUNCH. AT 1230
--- NOTE | 2019-06-04 12:45 | NUR ---
Assumed care of patient Patient arrived to unit via bed with heparin infusing. A/Ox3. Transferred from PCU and received report from TAZ Rodriguez. Heparin infusion verified with TAZ Verma. IV patent. Pt settled in room and oriented to call light.
--- NOTE | 2019-06-04 17:10 | NUR ---
Shift Summary A/Ox3. Pleasant and cooperative with care. Received in report pt can become forgetful at times. Calls appropriately using call light. Heparin infusing at this time per EMAR. 1P SBA to BSC. Plan is to get INR to therapeutic levels before discharging. No other acute changes this shift.
[2019-06-05 04:37] LABS: Hematocrit 39.8 % (33.0-51.0); Hemoglobin 12.7 g/dL (11.5-16.0)
[2019-06-05 04:53] LABS: International Normalized Ratio 1.98; Prothrombin Time Results 19.7 Sec (9.7-11.5)
--- NOTE | 2019-06-05 05:41 | NUR ---
SHIFT SUMMARY: PT STABLE T/O SHIFT. VS WNL. A&O X4. HEPARIN GTT INFUSING PER EMAR. PTT 45.8 THIS MORNING WITH INR OF 1.98. DOSE TITRATED PER PHARMACY. PT SBA TO BSC. VOIDING WELL. WAITING FOR THERAPEUTIC INR LEVEL UNTIL PT CAN FOLLOW UP OUTPATIENT FOR THROMBECTOMY WITH DR. JOHNSON. NO OTHER CHANGES THIS SHIFT.
[2019-06-05] MEDS ORDERED: DOXY100 PO (11:16)
[2019-06-05] MEDS ORDERED: FOLI1 PO (11:17)
[2019-06-05] MEDS ORDERED: Florastor250 MG PO (11:18)
--- NOTE | 2019-06-05 11:43 | NUR ---
Discharge Summary Pt discharged to home via personal vehicle, will be escorted by MATERIAL CONTROL SUPERVISOR. Reviewed discharge instructions and education with patient, gave time for questions. Meds faxed to [facility] in [facility] per pt request d/t preferred pharmacy being closed today. IV removed, WNL. at bedside transporting patient home. Personal belongings sent home with patient. She remains A/O x 3 and pleasant/cooperative. Has been calling appropriately. No other concerns.
[2019-06-07] MEDS ORDERED: XARELTO15 MG PO (16:08)
== END 2019-06-05 12:23 | disposition home or self-care (01) | DRG 253 ==
LOC: ER 19:29 → MEDS 22:17 → PCU 22:17 → MEDS 23:42 → PCU 06-01 17:49 → MEDS 06-04 13:06
PROVIDERS: Emergency Medicine; Internal Medicine; Nurse Practitioner Acute Care; Radiology Diagnostic Radiology; ADMIT Internal Medicine
PROC: 06H00DZ Insertion of Intraluminal Device into Inferior Vena Cava, Open Approach (ICD-10-PCS; principal; 2019-06-02)
DX: I82.402 Acute embolism and thrombosis of unspecified deep veins of left lower extremity (principal); I50.32 Chronic diastolic (congestive) heart failure; M06.9 Rheumatoid arthritis, unspecified; E03.9 Hypothyroidism, unspecified; Z87.891 Personal history of nicotine dependence; Z96.643 Presence of artificial hip joint, bilateral; Z79.01 Long term (current) use of anticoagulants; E66.9 Obesity, unspecified; Z68.30 Body mass index [BMI] 30.0-30.9, adult; E11.9 Type 2 diabetes mellitus without complications; Z79.84 Long term (current) use of oral hypoglycemic drugs; K59.00 Constipation, unspecified
CPT/HCPCS: 36415; 37191; 76937; 80048; 80053; 81001; 82947; 85014; 85018; 85025; 85610; 85730; 87077; 87086; 87186; 93005; 93010; 96365; 96376; 97162; 97530; 99152; 99153; 99285-25; A9270-GY; C1769; C1880; J1644; J2250; J3010; J7030; Q9967

== ENCOUNTER 2020-06-29 18:57 | Inpatient (IN) | payer OTHER ==
[~2020-06-29] VITALS: Ht 154.9 cm; Wt 72.6 kg
[~2020-06-29 18:57] MED LIST changes: -ARTIFICIAL TEA1 EACH BOTHEYES; +ARTIFICIAL TEAR15 M4 BOTHEYES; +DOXY100 PO; +FOLI1 PO; -Micro-K10 MEQ PO; +POTA10T PO; +SENN187 PO; +VITAMIN D325 MC3 PO
[2020-06-29 20:11] LABS: BASOPHILS ABSOLUTE AUTO 0.03 K/mm3 (0.00-0.23); BASOPHILS PERCENT AUTO 1 % (0-2); EOSINOPHILS ABSOLUTE AUTO 0.01 K/mm3 (0.00-0.68); EOSINOPHILS PERCENT AUTO 0 % (0-6); Hematocrit 52.2 % (33.0-51.0); Hemoglobin 16.4 g/dL (11.5-16.0); IMMATURE GRAN ABSOLUTE AUTO 0.01 K/mm3 (0.00-0.10); IMMATURE GRAN PERCENT AUTO 0 % (0-1); LYMPHOCYTES PERCENT AUTO 18 % (21-46); MONOCYTES ABSOLUTE AUTO 0.47 K/mm3 (0.16-1.47); MONOCYTES PERCENT AUTO 14 % (4-13); Mean Corpuscular HGB 31.5 pg (26.0-34.0); Mean Corpuscular HGB Conc 31.4 g/dL (31.5-36.5); Mean Corpuscular Volume 100 fL (80-100); Mean Platelet Volume 12.1 fL (9.1-12.4); NEUTROPHILS ABSOLUTE AUTO 2.15 K/mm3 (1.96-9.15); NEUTROPHILS PERCENT AUTO 66 % (41-73); Platelet Count 110 K/mm3 (150-400); RDW Coefficient Variation 15.2 % (11.7-14.2); White Blood Cell Count 3.27 K/mm3 (4.00-11.30)
[2020-06-29 20:24] LABS: Troponin I <0.015 ng/mL (0.000-0.040)
[2020-06-29 20:25] LABS: Alanine Aminotransfer (ALT/SGP 33 U/L (12-78); Albumin, Blood 3.2 g/dL (3.4-5.0); Albumin/Globulin Ratio 0.7 (0.8-1.8); Alk Phos 149 U/L (50-136); Anion Gap 9 mmol/L (6-16); Aspartate Aminotrans (AST/SGOT 67 U/L (12-37); Bilirubin, Total 0.8 mg/dL (0.1-1.0); Blood Urea Nitrogen 16 mg/dL (8-24); Bun/Creatinine Ratio 14.5 (12.0-20.0); CO2, Blood 22 mmol/L (21-32); Calcium, Blood 8.7 mg/dL (8.5-10.1); Chloride, Blood 104 mmol/L (98-108); Globulin, Blood 4.3 g/dL (2.2-4.0); Glomerular Filtration Rate 51 (60-); Glucose, Blood 137 mg/dL (70-99); Sodium, Blood 135 mmol/L (136-145); Total Protein, Blood 7.5 g/dL (6.4-8.2)
[2020-06-29 20:26] LABS: International Normalized Ratio 0.98; Prothrombin Time Results 10.5 Sec (9.7-11.5)
[2020-06-29 21:23] LABS: SARS-Cov-2 (COVID-19) PCR, MMC Positive (NEGATIVE)
[2020-06-29 21:24] LABS: Influenza A, PCR Negative (NEGATIVE); Influenza B, PCR Negative (NEGATIVE); Resp Syncytial Virus, PCR Negative (NEGATIVE)
--- NOTE | 2020-06-30 00:02 | NUR ---
REPORT FROM TAZ SANTANA IN ER. PATIENT ON HER WAY TO ROOM 311
--- NOTE | 2020-06-30 01:00 | NUR ---
Patient arrived in room 311 at same time she was informed that her who was admitted into ICU tonight with severe respiratory effects of COVID wishes to be made comfort care. Joann appears to understand his wishes, however is very upset about his decision. She got to speak with HEAD OF BIOLOGY as well as speaking with her right after she arrived to room.
[2020-06-30 05:29] LABS: BASOPHILS ABSOLUTE AUTO 0.01 K/mm3 (0.00-0.23); BASOPHILS PERCENT AUTO 0 % (0-2); EOSINOPHILS PERCENT AUTO 0 % (0-6); Hematocrit 47.1 % (33.0-51.0); Hemoglobin 14.7 g/dL (11.5-16.0); IMMATURE GRAN ABSOLUTE AUTO 0.01 K/mm3 (0.00-0.10); IMMATURE GRAN PERCENT AUTO 0 % (0-1); LYMPHOCYTES ABSOLUTE AUTO 0.69 K/mm3 (0.84-5.20); LYMPHOCYTES PERCENT AUTO 23 % (21-46); MONOCYTES ABSOLUTE AUTO 0.48 K/mm3 (0.16-1.47); MONOCYTES PERCENT AUTO 16 % (4-13); Mean Corpuscular HGB 31.3 pg (26.0-34.0); Mean Corpuscular HGB Conc 31.2 g/dL (31.5-36.5); Mean Corpuscular Volume 100 fL (80-100); NEUTROPHILS ABSOLUTE AUTO 1.85 K/mm3 (1.96-9.15); NEUTROPHILS PERCENT AUTO 61 % (41-73); Platelet Count 104 K/mm3 (150-400); RDW Coefficient Variation 15.1 % (11.7-14.2); RDW Standard Deviation 54.5 fL (35.1-46.3); Red Blood Cell Count 4.69 M/mm3 (3.80-5.20); White Blood Cell Count 3.04 K/mm3 (4.00-11.30)
--- NOTE | 2020-06-30 05:41 | NUR ---
ASSET CARD CLERK SUMMARY Patient arrived from ER without complaints of discomfort, SOB, nausea or diarrhea. Upon arriving to room 311, patient received a call from ICU gently informing her (in my presence) that her , who was admitted at the same time with [place], wishes to change his code status to comfort care. This patient was comforted and allowed to express her fears, and after about a half an hour, her had been settled and she was able to speak with him on the phone which made her feel better. Joann has an eccymotic area on her left todd that has a very tender hematoma. This was xrayed and found to be intact. Patient got her first Remdesivir upon arrival at the floor at 0130
[2020-06-30 05:54] LABS: Alanine Aminotransfer (ALT/SGP 25 U/L (12-78); Albumin, Blood 2.6 g/dL (3.4-5.0); Albumin/Globulin Ratio 0.7 (0.8-1.8); Alk Phos 122 U/L (50-136); Anion Gap 6 mmol/L (6-16); Aspartate Aminotrans (AST/SGOT 46 U/L (12-37); Bilirubin, Total 0.5 mg/dL (0.1-1.0); Blood Urea Nitrogen 13 mg/dL (8-24); Bun/Creatinine Ratio 14.1 (12.0-20.0); CO2, Blood 26 mmol/L (21-32); Chloride, Blood 107 mmol/L (98-108); Creatinine, Blood 0.92 mg/dL (0.40-1.00); Globulin, Blood 3.5 g/dL (2.2-4.0); Glomerular Filtration Rate >60 (60-); Glucose, Blood 135 mg/dL (70-99); Potassium, Blood 3.5 mmol/L (3.5-5.5); Sodium, Blood 139 mmol/L (136-145); Total Protein, Blood 6.1 g/dL (6.4-8.2)
--- NOTE | 2020-06-30 16:17 | NUR ---
SHIFT SUMMARY PATIENT DENIES PAIN, NAUSEA, AND SHORTNESS OF BREATH. PATIENT REPORTS FEELING VERY WEAK AND SLEEPY TODAY. PATIENT UP SBA TO BR. POOR PO INTAKE. PATIENT VERY WORRIED ABOUT HER IN ICU.
--- NOTE | 2020-06-30 19:46 | NUR ---
Daughter in Law, Manjula called regarding status of parents healthcare decisions, and requested a social work consult because their two sons are both distraught. And feel they could use some counseling. Will be speaking to Joann regarding this call prior to calling her back. Or perhaps Joann would want to contact her instead. will continue close monitoring
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
--- NOTE | 2020-07-01 16:12 | NUR ---
SHIFT SUMMARY PATIENT DENIES PAIN, NAUSEA, AND SHORTNESS OF BREATH. PATIENT UP INDEPENDENT TO BR. PATIENT VERY ANXIOUS ABOUT HER HUSBANDS COMFORT CARE STATUS AND WANTS TO SEE HIM. GOAL IS TO PLACE THEM TOGETHER IN DOUBLE ROOM WHEN AVAILABLE.
[2020-07-02 05:07] LABS: Hematocrit 49.8 % (33.0-51.0); Hemoglobin 16.1 g/dL (11.5-16.0); Mean Corpuscular HGB 31.6 pg (26.0-34.0); Mean Corpuscular HGB Conc 32.3 g/dL (31.5-36.5); Mean Corpuscular Volume 98 fL (80-100); Mean Platelet Volume 12.1 fL (9.1-12.4); Platelet Count 140 K/mm3 (150-400); RDW Coefficient Variation 14.6 % (11.7-14.2); RDW Standard Deviation 51.8 fL (35.1-46.3); White Blood Cell Count 6.02 K/mm3 (4.00-11.30)
[2020-07-02 05:29] LABS: Albumin, Blood 2.7 g/dL (3.4-5.0); Anion Gap 6 mmol/L (6-16); Blood Urea Nitrogen 22 mg/dL (8-24); CO2, Blood 26 mmol/L (21-32); Calcium, Blood 8.7 mg/dL (8.5-10.1); Chloride, Blood 107 mmol/L (98-108); Creatinine, Blood 0.92 mg/dL (0.40-1.00); Glomerular Filtration Rate >60 (60-); Glucose, Blood 223 mg/dL (70-99); Phosphorus, Blood 2.7 mg/dL (2.5-4.9); Sodium, Blood 139 mmol/L (136-145)
--- NOTE | 2020-07-02 12:05 | NUR ---
Spiritual care visit conducted. Patient is sitting up in bed and alert. Patient tells me about her medical issues and her husbands issues (who is in the bed on the other side of the curtain). Patient shares about her Protestant josiah and the love she has for her anglican family ([facility]). Patient talks at length about their family and the three generations who have followed in their josiha tradition. Patient gets tearful in talking about her and states, "I can't live alone, I need him here." She explains some personal information. I reinforce helpful attitudes and practices, and provide therapeutic listening, pastoral general counsel and prayer. Patient shows signs of an elevated mood and an increase in hope. I will continue to assist patient deal with the realities of her situation and yet contiuing to have a positive expectancy about the future.
--- NOTE | 2020-07-02 16:00 | NUR ---
CARE ROUNDING- PT APPEARS TO BE SLEEPING COMFORTABLY NO S&S OF DISTRESS AT THIS TIME WILL CTM.
--- NOTE | 2020-07-02 16:51 | NUR ---
RECIEVED A CALL FROM PT SON KAYLEEN KAYLEEN WOULD LIKE TO RECIEVE A CALL FROM THE DOCTOR WITH AN UPDATE TO THE PT STATUS.
--- NOTE | 2020-07-02 17:53 | NUR ---
SHIFT SUMMARY- PT ALERT AND ORIENTED AND HAS BEEN INDEPENDENT TO THE BATHROOM T/O THE DAY. PT STATED THAT SHE NEEDS SBA TO THE BATHROOM BUT DOES NOT CALL FOR STAFF ASSISTANCE. BED ALARM WAS SET TO VISUALIZE HER AMBULATING TO THE BATHROOM. PT STEADY ON HER FEET TODAY. BED ALARM ON FOR SAFETY AT THIS TIME WILL PASS ON TO BAND TUMBLER SO THEY MAY DETERMINE NIGHT TIME SAFETY. PER REPORT FROM NIGHT RN PT WAS A 1P SBA TO THE BATHROOM LAST NIGHT. PT CURRENTLY SITTING UP IN BED CALL LIGHT IN REACH NO S&S OF DISTRESS NOTED PT EATING HER DINNER.
--- NOTE | 2020-07-03 05:04 | NUR ---
MOLD CAPPER HELPER SUMMARY PT IS AXO X4. PT IS ABLE TO WALK TO THE BATHROOM UNASSISTED W NO DYSPNEA. NO NEW S/S THIS SHIFT, WCTM.
--- NOTE | 2020-07-03 14:22 | NUR ---
Clinical Visit: Pt is alert, oriented. She does not have many complaints. She denies shortness of breath, pain, anxiety. She is not experiencing headaches or ringing in her ears. She feels fairly comfortable. Pt has difficulty understanding POLST form and advance directive. She is telling me about her and her 's arrangements and burial plans. Many attempts at explaining these forms more carefully, however, pt is not understanding them. Pt is ready to go home. She wants to be discharged the same day as her . As his COVID clinical presentation is more symptomatic than her course, she may be discharged while he is still receiving treatment. Advance directive and POLST forms will be sent home with the pt for her review when she is not ill. May consider following up with a phone call to the pt's son to explain documents. Will remain available.
--- NOTE | 2020-07-04 06:08 | NUR ---
PT A/O X4. DENIES PAIN, SOB. ON ROOM AIR WITH NO RESPIRATORY DISTRESS. AMBULATED TO BATHROOM INDEPENDENTLY WITH NO ISSUES. CALL LIGHT WITHIN REACH.
--- NOTE | 2020-07-04 12:23 | NUR ---
DISCHARGE INSTRUCTIONS EXPLAINED TO THE PATIENT. ALL QUESTIONS ANSWERED. NO IV TO REMOVE. PATIENT IS SITTING UPRIGHT IN THE ROOM WAITING FOR HER SON TO COME PICK HER UP FOR DISCHARGE.
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
--- NOTE | 2020-07-04 14:06 | NUR ---
PATIENT WAS ESCORTED OUT OF THE HOSPITAL IN A WHEEL CHAIR AT 1403 BY A CITIZEN PARTICIPATION SPECIALIST. PATIENT TO MEET HER SON AT THE HOSPITAL ENTRANCE FOR DISCHARGE HOME.
== END 2020-07-04 14:07 | disposition home or self-care (01) | DRG 871 ==
LOC: ER 18:57 → MEDS 22:57
PROVIDERS: Emergency Medicine; Internal Medicine; Nurse Practitioner Acute Care; ADMIT Internal Medicine
PROC: XW033E5 Introduction of Remdesivir Anti-infective into Peripheral Vein, Percutaneous Approach, New Technology Group 5 (ICD-10-PCS; principal; 2020-06-29)
PROC: 3E0333Z Introduction of Anti-inflammatory into Peripheral Vein, Percutaneous Approach (ICD-10-PCS; 2020-06-29)
DX: A41.89 Other specified sepsis (principal); U07.1 COVID-19; J12.89 Other viral pneumonia; J96.01 Acute respiratory failure with hypoxia; I50.32 Chronic diastolic (congestive) heart failure; N17.9 Acute kidney failure, unspecified; J44.0 Chronic obstructive pulmonary disease with (acute) lower respiratory infection; Z51.5 Encounter for palliative care; E03.9 Hypothyroidism, unspecified; E11.9 Type 2 diabetes mellitus without complications; M06.9 Rheumatoid arthritis, unspecified; Z86.711 Personal history of pulmonary embolism; Z86.718 Personal history of other venous thrombosis and embolism; Z87.891 Personal history of nicotine dependence; Z96.643 Presence of artificial hip joint, bilateral; Z79.01 Long term (current) use of anticoagulants
CPT/HCPCS: 0241U; 36415; 71045; 73590; 80053; 80069; 82947; 83605; 83880; 84484; 85025; 85027; 85610; 87040; 93005; 93010; 94760; 99285-25

== ENCOUNTER 2020-07-08 00:33 | Inpatient (IN) | payer OTHER ==
--- NOTE | 2020-07-07 13:42 | NUR ---
Discharge: Spoke to pt's son. He states that pt did not bring home discharge instructions. He states that he is worried about her mental status - as she is frequently forgeting things and appears confused at times. He is concerned about a dementia diagnosis for her if appropriate. She has not been diagnosed before, but thinks it is becoming more evident. Her discharge papers are emailed to him for review.
[~2020-07-08] VITALS: Ht 154.9 cm; Wt 78.0 kg
[2020-07-08 01:03] LABS: BASOPHILS ABSOLUTE AUTO 0.02 K/mm3 (0.00-0.23); BASOPHILS PERCENT AUTO 0 % (0-2); EOSINOPHILS ABSOLUTE AUTO 0.02 K/mm3 (0.00-0.68); EOSINOPHILS PERCENT AUTO 0 % (0-6); Hematocrit 51.5 % (33.0-51.0); Hemoglobin 16.7 g/dL (11.5-16.0); IMMATURE GRAN ABSOLUTE AUTO 0.16 K/mm3 (0.00-0.10); IMMATURE GRAN PERCENT AUTO 2 % (0-1); LYMPHOCYTES ABSOLUTE AUTO 0.42 K/mm3 (0.84-5.20); LYMPHOCYTES PERCENT AUTO 5 % (21-46); MONOCYTES ABSOLUTE AUTO 0.87 K/mm3 (0.16-1.47); MONOCYTES PERCENT AUTO 10 % (4-13); Mean Corpuscular HGB 31.7 pg (26.0-34.0); Mean Corpuscular HGB Conc 32.4 g/dL (31.5-36.5); Mean Corpuscular Volume 98 fL (80-100); Mean Platelet Volume 11.6 fL (9.1-12.4); NEUTROPHILS ABSOLUTE AUTO 6.99 K/mm3 (1.96-9.15); NEUTROPHILS PERCENT AUTO 82 % (41-73); NRBC ABSOLUTE 0.02 K/mm3 (0.00-0.02); NRBC Auto 0.2 /100 WBC (0.0-0.2); Platelet Count 126 K/mm3 (150-400); RDW Coefficient Variation 14.8 % (11.7-14.2); RDW Standard Deviation 52.4 fL (35.1-46.3); Red Blood Cell Count 5.26 M/mm3 (3.80-5.20); White Blood Cell Count 8.48 K/mm3 (4.00-11.30)
[2020-07-08 01:22] LABS: Source, Urine Clean Catch
[2020-07-08 01:24] LABS: CPK Creatine Kinase 76 U/L (26-193); Troponin I <0.015 ng/mL (0.000-0.040)
[2020-07-08 01:25] LABS: Alanine Aminotransfer (ALT/SGP 18 U/L (12-78); Albumin, Blood 2.4 g/dL (3.4-5.0); Albumin/Globulin Ratio 0.6 (0.8-1.8); Alk Phos 131 U/L (50-136); Anion Gap 3 mmol/L (6-16); Aspartate Aminotrans (AST/SGOT 39 U/L (12-37); Bilirubin, Total 0.9 mg/dL (0.1-1.0); Blood Urea Nitrogen 21 mg/dL (8-24); Bun/Creatinine Ratio 21.8 (12.0-20.0); CO2, Blood 27 mmol/L (21-32); Calcium, Blood 8.6 mg/dL (8.5-10.1); Chloride, Blood 105 mmol/L (98-108); Creatinine, Blood 0.96 mg/dL (0.40-1.00); Globulin, Blood 4.3 g/dL (2.2-4.0); Glomerular Filtration Rate 59 (60-); Glucose, Blood 202 mg/dL (70-99); Potassium, Blood 4.3 mmol/L (3.5-5.5); Sodium, Blood 135 mmol/L (136-145); Total Protein, Blood 6.7 g/dL (6.4-8.2)
[2020-07-08 01:27] LABS: PCO2 Arterial 29.9 mmHg (35-45); PO2 Arterial 38.9 mmHg (80-100)
[2020-07-08 01:28] LABS: Appearance, Urine Clear (Clear); Bilirubin, Urine Neg (Neg); Blood, Urine 3+ (Neg); Color, Urine Amber (P-Yellow); Glucose Qualitative, Urine 3+ (Neg); Ketones, Urine 2+ (Neg); Leukocyte Esterase, Urine Neg (Neg); Nitrite, Urine Neg (Neg); Protein, Urine 2+ (Neg); Urobilinogen, Urine NORM (Normal)
[2020-07-08 01:34] LABS: Red Blood Cells, Urine 0-2 /hpf (0-2); Squamous Epithelial Cells Not Seen /hpf (Few)
[2020-07-08 01:35] LABS: Bacteria Few /hpf
--- NOTE | 2020-07-08 05:45 | NUR ---
SHIFT SUMMARY PT ARRIVED TO UNIT FROM ED VIA STRETCHER AT 0400. TRANSFERRED FROM STRETCHER TO BED VIA SLIDER SHEET AT 3 STAFF ASSIST. PT IS A&O X4, CALLS APPROPRIATELY. SBA-1 ASSIST TO BSC. LUNGS ARE CLEAR BUT DIMINISHED IN THE BASES. PT IS ON 2LNC. SKIN IS CDI. PT IS LAYING IN BED WITH EYES CLOSED, EVEN AND UNLABORED RESPIRATIONS. BED IN LOWERED POSITION WITH ALARM IN PLACE. CALL LIGHT AND PERSONAL ITEMS WITH IN REACH. NO APPARENT NEEDS OR DISTRESS AT THIS TIME, WILL CONTINUE TO MONITOR UNTIL REPORT GIVEN TO DAY RN.
[2020-07-08 06:05] LABS: BASOPHILS ABSOLUTE AUTO 0.03 K/mm3 (0.00-0.23); BASOPHILS PERCENT AUTO 0 % (0-2); EOSINOPHILS ABSOLUTE AUTO 0.02 K/mm3 (0.00-0.68); EOSINOPHILS PERCENT AUTO 0 % (0-6); Hematocrit 48.5 % (33.0-51.0); Hemoglobin 15.3 g/dL (11.5-16.0); IMMATURE GRAN ABSOLUTE AUTO 0.14 K/mm3 (0.00-0.10); IMMATURE GRAN PERCENT AUTO 2 % (0-1); LYMPHOCYTES ABSOLUTE AUTO 0.46 K/mm3 (0.84-5.20); LYMPHOCYTES PERCENT AUTO 6 % (21-46); MONOCYTES ABSOLUTE AUTO 0.96 K/mm3 (0.16-1.47); MONOCYTES PERCENT AUTO 12 % (4-13); Mean Corpuscular HGB 30.7 pg (26.0-34.0); Mean Corpuscular HGB Conc 31.5 g/dL (31.5-36.5); Mean Corpuscular Volume 97 fL (80-100); Mean Platelet Volume 11.7 fL (9.1-12.4); NEUTROPHILS ABSOLUTE AUTO 6.21 K/mm3 (1.96-9.15); NEUTROPHILS PERCENT AUTO 79 % (41-73); Platelet Count 123 K/mm3 (150-400); RDW Coefficient Variation 14.8 % (11.7-14.2); RDW Standard Deviation 52.5 fL (35.1-46.3); Red Blood Cell Count 4.98 M/mm3 (3.80-5.20); White Blood Cell Count 7.82 K/mm3 (4.00-11.30)
[2020-07-08 06:18] LABS: Alanine Aminotransfer (ALT/SGP 14 U/L (12-78); Albumin, Blood 2.1 g/dL (3.4-5.0); Albumin/Globulin Ratio 0.6 (0.8-1.8); Alk Phos 114 U/L (50-136); Anion Gap 8 mmol/L (6-16); Aspartate Aminotrans (AST/SGOT 27 U/L (12-37); Bilirubin, Total 0.8 mg/dL (0.1-1.0); Blood Urea Nitrogen 20 mg/dL (8-24); Bun/Creatinine Ratio 21.9 (12.0-20.0); CO2, Blood 24 mmol/L (21-32); Calcium, Blood 8.1 mg/dL (8.5-10.1); Chloride, Blood 106 mmol/L (98-108); Creatinine, Blood 0.91 mg/dL (0.40-1.00); Globulin, Blood 3.6 g/dL (2.2-4.0); Glomerular Filtration Rate >60 (60-); Glucose, Blood 182 mg/dL (70-99); Potassium, Blood 3.6 mmol/L (3.5-5.5); Sodium, Blood 138 mmol/L (136-145); Total Protein, Blood 5.7 g/dL (6.4-8.2)
--- NOTE | 2020-07-08 18:00 | NUR ---
SHIFT SUMMARY: NO ACUTE EVENTS TO REPORT THIS SHIFT. PT A&O; CALM AND COOPERATIVE WITH CARE. NO C/O PAIN THIS SHIFT. TELE IN PLACE; SR @ 64 PER PIT FURNACE OPERATOR DURING MORNING ASSESSMENT. O2 @ 2L; PT ON ROOM AIR AT HOME. AWAITING SPUTUM SAMPLE. WCTM.
--- NOTE | 2020-07-09 05:37 | NUR ---
07/09/20 0540 ASSISTED UP TO BATHROOM FOR VOIDING AND THEN RETURNED TO BED. VITALS TAKEN AFTER UP. SLIGHT SOB WITH ACTIVITY BUT RELIEVED AFTER RESTING IN BED. DENIES ANY DISCOMFORT. SIPPING ON LUKEWARM WATER. STILL NO SPUTUM FOR SPECIMEN. PT HAS BEEN ALERT X 4 ALL SHIFT.
--- NOTE | 2020-07-09 12:59 | NUR ---
Patient is sitting up in bed and alert. Patient immediately tells me how frustrated she is about having to be back in the hospital and about how frustrating it has been that her has not wanted to talk to her. Patient was surprised when I told her that her spouse, Derick, was wanting her to call him (he is also a patient in the Covid unit). She also shares her concerns about going home (especially if her and her DC at a similar) because her son is "not a great caregiver." I normalize patient's frustrations and concerns, reinforce helpful attitudes, and provide anxiety containment, pastoral licensed professional counselor and prayer. Patient responds well and shows signs of reduced stress. I will continue to remain available for patient and family.
--- NOTE | 2020-07-09 17:30 | NUR ---
SHIFT SUMMARY- PT IS A/O, PLESANT AND COOPERATIVE. SHE IS EATING AND DRINKING WELL. SHE IS ON 2L O2 VIA NASAL CANNULA AND MAINTAING HER SATS. SPOKE WITH HER SON KAYLEEN ON THE PHONE. HE HAS SOME CONCERNS ABOUT THE PT AFTER DISCHARGE. HE REPORTS THAT SHE HAS NOT BEEN TAKING CARE OF HERSELF AT HOME AND THAT HIS FATHER WILL NOT BE ABLE TO CARE FOR HER CONSIDERING HIS HEALTH. I LEFT A MESSAGE WITH THE TECHNICAL COMMUNICATION TEACHER TO DISCUSS THIS WITH THE SON. HER BED IS IN THE LOW POSITION AND HER CALL LIGHT IS WITHIN REACH.
--- NOTE | 2020-07-09 19:50 | NUR ---
ASSUMED CARE. JABIER IS IN A GOOD MOOD, WATCHING TV. LUNG SOUNDS ARE CLEAR BUT DIMINISHED IN BASES. VS WNL. AFEBRILE. HR SINUS. ON 2 LITERS OF O2 SATS IN THE 90'S. DENIES SOB. REPORTS SOME MINOR PAIN IN THE MID BACK AREA, ASKED FOR PAIN MEDS. WILL TAKE A LOOK AT [facility]. DENIES ANY OTHER NEEDS AT THIS TIME. CALL LIGHT IS IN REACH.
--- NOTE | 2020-07-09 21:35 | NUR ---
TRIED TO ADMINISTER TYLENOL BUT THE PATIENT REPORTED SHE WAS ALLERGIC. SHE HAD A DOSE LAST NIGHT, ALL SHE SAID IS THAT IS WHY SHE FELT SO BAD LAST NIGHT. SHE SAID SHE NORMALLY TAKES HYDROCODONE WHICH I EXPLAINED THAT IT HAS TYLENOL IN IT SHE SAID SHE DID NOT KNOW. SHE DOES NOT WANT TO TAKE THE TYLENOL, THEREFORE ADDED IT TO HER ALLERGY LIST.
--- NOTE | 2020-07-10 00:06 | NUR ---
TELEMETRY CALLED REPORTING THAT THE PATIENT IS TRENDING IN THE LOW 50'S AND IS STARTING TO MOVE TO MID 40'S. LOWEST SHE HAS GOTTEN IS 40. SHE IS CURRENTLY SLEEPING WITH NO SIGNS OF DISTRESS. SHE WAS AWAKE AND SAID SHE IS WORRIED ABOUT HER AND COULD NOT SLEEP. REASSURED HER THAT EVERTHING WILL BE OK. GOT HER UP TO BSC AND BACK TO BED.
--- NOTE | 2020-07-10 05:08 | NUR ---
SHIFT SUMMARY: AOX3, PLEASANT. HAD DIFFICULTY SLEEPING LAST NIGHT DUE TO WORRING ABOUT HER WHO IS ILL. HER LUNGS HAVE IMPROVED TO BEING DIMINISHED IN THE BASES. SHE WAS TAKEN OFF OXYGEN LAST NIGHT AND HAS REMAINED ABOVE 90%. SHE HAS MINIMAL COUGH WITH PRODUCTION. PER TELEMETRY SHE DID GO BRADICARDIC LAST NIGHT DOWN TO 40BPM THEN CAME RIGHT BACK UP AVERAGING IN THE 50'S. MILD EDEMA IS NOTED TO BLE. SHE HAD SOME PAIN IN HER BACK BUT IT WAS TOLERABLE. SHE DID NOT WANT TO TAKE TYLENOL SHE STATES SHE IS ALLERGIC TO IT. SHE HAD ME PUT IT ON HER ALLERGY LIST. NO OTHER CHANGES OCCURRED THIS SHIFT. CALL LIGHT HAS REMAINED IN REACH.
--- NOTE | 2020-07-10 17:54 | NUR ---
SUMMARY PT SITTING UP IN BED EATING DINNER, PT HAS BEEN PLEASANT AND COOPERATIVE WITH CARE, UP WITH 1P ASSIST TO THE COMMODE, PT RELUCTANT TO WORK WITH PT/OT TODAY, STATES SHE WILL TRY TOMORROW, HOPEFUL TO DC HOME WITH HOME HEALTH SOON, VSS, REMAINS ON ROOM AIR, WILL CONT TO MONITOR
--- NOTE | 2020-07-11 03:57 | NUR ---
BOXING TRAINER SUMMARY A/OX3, APPEARED TO SLEEP T/O SHIFT. 1 ASSIST TO BSC. PT COOPERATIVE AND PLEASANT. DENIES PAIN OR SOB, CURRENTLY ON RA WITH SATS GREATER THAN 92. VSS, NO ACUTE CHANGES AT THIS TIME. BED IN LOWEST POSITION WITH CALL LIGHT IN REACH. WILL CONTINUE TO MONITOR AND REPORT TO ONCOMING RN.
--- NOTE | 2020-07-11 13:14 | NUR ---
Spiritual care visit conducted. Patient is lying in bed and alert. Patient tells me that she is improving sumi and is ready to go home. She also says that she is afraid to go home because it didn't go well last time and she ended up being right back in the hospital after only a couple of days. Patient shares that her biggest fear is being sent to a rehab. facility. She goes on to talk about the traumatizing events that have colored how she sees these facilities. Patient then begins a lengthy conversation centered around her 's health and she gets weepy as she talks about how she can't manage life without her by her side. She tells me she has two great sons and a wonderful [id number] but needs Derick to pull out of this and to stop resisting medical treatment and care. I provide therapeutic listening and normalize patient's experience. I will continue to remain available to patient and family.
--- NOTE | 2020-07-11 17:13 | NUR ---
SUMMARY PT SITTING UP IN BED WATCHING TV, PT HAS BEEN PLEASANT AND COOPERATIVE WITH CARE, PT UP WITH MIN ASSIST TO THE COMMODE, PT HAS WORKED WITH THERAPY, PLAN TO DC IN AM, PT REMAINS ON ROOM AIR, PT ABLE TO SPEAK WITH HER SPOUSE ON THE PHONE, VSS, WILL CONT TO MONITOR
--- NOTE | 2020-07-12 02:13 | NUR ---
TELEMETRY EVENT: JUANA DOWN TO 30'S PER TECH. THIS RN OPEN DOOR AND PATIENT TURNED AWAKE AND HR BACK INTO THE 50'S PER TECH. PATIENT ALERT AND ORIENTED. TECH REPORTS LEFT LOWER LEAD OFF AND REPLACED. PATIENT JUANA 57 AT SHIFT CHANGE. CALL LIGHT IN REACH. WILL CONTINUE TO MONITOR.
--- NOTE | 2020-07-12 03:45 | NUR ---
SHIFT SUMMARY PATIENT HAD ONE TELEMETRY EVENT. SEE NOTE. JUANA DOWN TO 30'S AND BACK TO HR 50'S QUICKLY. AXOX 4 AND ONE ASSIST TO BSC. PIV REMAINS INTACT. RUBBER TRIMMER REPORTS JUANA 57 AT SHIFT CHANGE. VSS/AFEBRILE. ON ROOM AIR. DENIES PAIN, SOB, AND N/V. COOPERATIVE WITH CARE. POSSIBLE DC IN AM. CALL LIGHT IN REACH. BED IN LOWEST POSITION. WILL CONTINUE TO MONITOR UNTIL DAY SHIFT NURSE ASSUMES CARE.
[2020-07-12] MEDS ORDERED: MELA3 PO (13:11)
--- NOTE | 2020-07-12 14:08 | NUR ---
pt to discharge brief conversation with her about coordinating care with her sons. Advised will be getting follow up care. suggested they hire a caregiver. She states a niece come by to help. will speak with sons about resources. She is high risk for readmission.
== END 2020-07-12 13:58 | disposition home health service (06) | DRG 177 ==
LOC: ER 00:33 → MEDS 00:34
PROVIDERS: Emergency Medicine; ADMIT Internal Medicine
PROC: 3E0333Z Introduction of Anti-inflammatory into Peripheral Vein, Percutaneous Approach (ICD-10-PCS; principal; 2020-07-09)
PROC: 8E0ZXY6 Isolation (ICD-10-PCS; 2020-07-09)
DX: U07.1 COVID-19 (principal); J12.89 Other viral pneumonia; J96.01 Acute respiratory failure with hypoxia; I50.32 Chronic diastolic (congestive) heart failure; E03.9 Hypothyroidism, unspecified; E11.9 Type 2 diabetes mellitus without complications; G31.84 Mild cognitive impairment of uncertain or unknown etiology; M06.9 Rheumatoid arthritis, unspecified; Z87.891 Personal history of nicotine dependence; Z86.711 Personal history of pulmonary embolism; Z86.718 Personal history of other venous thrombosis and embolism; Z96.643 Presence of artificial hip joint, bilateral; Z79.01 Long term (current) use of anticoagulants
CPT/HCPCS: 36415; 36600; 71045; 80053; 81001; 82550; 82803; 83605; 83880; 84484; 85025; 86141; 93005; 93010; 94760; 96374; 97162; 99285-25; A9270; G0008; G0378; J1940; J8610; Q2038

== ENCOUNTER → 2022-03-18 | Outpatient (CLI) | payer OTHER ==
[~2022-03-18] MED LIST changes: +MELA3 PO
[2022-03-18 19:43] LABS: Thyroxine (T4) 11.6 ug/dL (4.8-13.9)
[2022-03-18 19:49] LABS: BASOPHILS ABSOLUTE AUTO 0.05 K/mm3 (0.00-0.23); BASOPHILS PERCENT AUTO 1 % (0-2); EOSINOPHILS PERCENT AUTO 2 % (0-6); Hematocrit 39.9 % (33.0-51.0); Hemoglobin 13.1 g/dL (11.5-16.0); IMMATURE GRAN ABSOLUTE AUTO 0.03 K/mm3 (0.00-0.10); IMMATURE GRAN PERCENT AUTO 1 % (0-1); LYMPHOCYTES ABSOLUTE AUTO 0.75 K/mm3 (0.84-5.20); LYMPHOCYTES PERCENT AUTO 14 % (21-46); MONOCYTES ABSOLUTE AUTO 0.76 K/mm3 (0.16-1.47); MONOCYTES PERCENT AUTO 15 % (4-13); Mean Corpuscular HGB 34.9 pg (26.0-34.0); Mean Corpuscular HGB Conc 32.8 g/dL (31.5-36.5); Mean Corpuscular Volume 106 fL (80-100); Mean Platelet Volume 12.7 fL (9.1-12.4); NEUTROPHILS ABSOLUTE AUTO 3.56 K/mm3 (1.96-9.15); NEUTROPHILS PERCENT AUTO 68 % (41-73); NRBC ABSOLUTE 0.03 K/mm3 (0.00-0.02); NRBC Auto 0.6 /100 WBC (0.0-0.2); Platelet Count 110 K/mm3 (150-400); RDW Coefficient Variation 19.3 % (11.7-14.2); Red Blood Cell Count 3.75 M/mm3 (3.80-5.20); White Blood Cell Count 5.25 K/mm3 (4.00-11.30)
[2022-03-18 19:50] LABS: Albumin, Blood 2.5 g/dL (3.4-5.0); Albumin/Globulin Ratio 0.6 (0.8-1.8); Bilirubin, Total 0.7 mg/dL (0.1-1.0); Bun/Creatinine Ratio 18.2 (12.0-20.0); Calcium, Blood 8.9 mg/dL (8.5-10.1); Creatinine, Blood 0.93 mg/dL (0.40-1.00); Globulin, Blood 4.2 g/dL (2.2-4.0); Potassium, Blood 3.6 mmol/L (3.5-5.5); Thyroid Stimulating Hormone 3.55 uIU/mL (0.360-4.800); Total Protein, Blood 6.7 g/dL (6.4-8.2)
== END | disposition home or self-care (01) ==
LOC: LAB SHORT 16:08
PROVIDERS: Family Medicine
DX: E11.9 Type 2 diabetes mellitus without complications (principal); I10 Essential (primary) hypertension; R53.83 Other fatigue
CPT/HCPCS: 36415; 80053; 83036; 83880; 84436; 84443; 85025

== ENCOUNTER 2022-07-16 15:22 | Inpatient (IN) | payer MEDICARE ==
[~2022-07-16] VITALS: Ht 165.1 cm; Wt 79.4 kg
[2022-07-16 17:14] LABS: Albumin, Blood 2.3 g/dL (3.4-5.0); Albumin/Globulin Ratio 0.5 (0.8-1.8); Bilirubin, Total 1.7 mg/dL (0.1-1.0); Bun/Creatinine Ratio 25.6 (12.0-20.0); Calcium, Blood 8.6 mg/dL (8.5-10.1); Creatinine, Blood 0.94 mg/dL (0.40-1.00); Globulin, Blood 4.5 g/dL (2.2-4.0); Potassium, Blood 5.3 mmol/L (3.5-5.5); Total Protein, Blood 6.8 g/dL (6.4-8.2)
[2022-07-16 17:38] LABS: BASOPHILS ABSOLUTE AUTO 0.01 K/mm3 (0.00-0.23); BASOPHILS PERCENT AUTO 0 % (0-2); EOSINOPHILS ABSOLUTE AUTO 0.11 K/mm3 (0.00-0.68); EOSINOPHILS PERCENT AUTO 4 % (0-6); Hematocrit 31.8 % (33.0-51.0); Hemoglobin 10.7 g/dL (11.5-16.0); IMMATURE GRAN ABSOLUTE AUTO 0.01 K/mm3 (0.00-0.10); IMMATURE GRAN PERCENT AUTO 0 % (0-1); LYMPHOCYTES ABSOLUTE AUTO 0.78 K/mm3 (0.84-5.20); LYMPHOCYTES PERCENT AUTO 25 % (21-46); MONOCYTES ABSOLUTE AUTO 0.23 K/mm3 (0.16-1.47); MONOCYTES PERCENT AUTO 8 % (4-13); Mean Corpuscular HGB 39.5 pg (26.0-34.0); Mean Corpuscular HGB Conc 33.6 g/dL (31.5-36.5); Mean Corpuscular Volume 117 fL (80-100); Mean Platelet Volume 11.6 fL (9.1-12.4); NEUTROPHILS ABSOLUTE AUTO 1.93 K/mm3 (1.96-9.15); NEUTROPHILS PERCENT AUTO 63 % (41-73); NRBC ABSOLUTE 0.05 K/mm3 (0.00-0.02); NRBC Auto 1.6 /100 WBC (0.0-0.2); RDW Coefficient Variation 19.3 % (11.7-14.2); RDW Standard Deviation 79.2 fL (35.1-46.3); Red Blood Cell Count 2.71 M/mm3 (3.80-5.20); White Blood Cell Count 3.07 K/mm3 (4.00-11.30)
[2022-07-16 17:42] LABS: Platelet Count 36 K/mm3 (150-400)
[2022-07-16 20:46] LABS: Source, Urine Straight Cath
[2022-07-16 21:03] LABS: Appearance, Urine Hazy (Clear); Blood, Urine 1+ (Neg); Color, Urine Yellow (P-Yellow); Glucose Qualitative, Urine Neg (Neg); Ketones, Urine 2+ (Neg); Leukocyte Esterase, Urine 2+ (Neg); Nitrite, Urine Pos (Neg); Protein, Urine 2+ (Neg); Specific Gravity, Urine 1.025 (1.003-1.022); Urobilinogen, Urine 1+ (Normal)
[2022-07-16 21:05] LABS: Bun/Creatinine Ratio 23.1 (12.0-20.0); Calcium, Blood 8.6 mg/dL (8.5-10.1); Creatinine, Blood 1.08 mg/dL (0.40-1.00); Magnesium, Blood 2.1 mg/dL (1.6-2.4); Potassium, Blood 4.7 mmol/L (3.5-5.5)
[2022-07-16 21:11] LABS: Bilirubin, Urine 1+ (Neg)
[2022-07-16 21:16] LABS: Bacteria Many /hpf; Mucus Light (0-Heavy); Red Blood Cells, Urine 0-2 /hpf (0-2); Squamous Epithelial Cells Rare /hpf (Few); Transitional Epithelial Cells Rare /hpf (0-Rare)
[2022-07-17] MEDS ORDERED: ESCI10 PO (01:13)
[2022-07-17] MEDS ORDERED: KLOR-CON 1010 ME1 PO (01:14)
--- NOTE | 2022-07-17 02:36 | NUR ---
0145 PT ARRIVED TO FLOOR. ASSESSMENT COMPLETE, ADMISSION COMPLETE. SKIN ASSESSMENT COMPLETE. NOTED BRUISING ON ALL EXTREMITIES, LLE +2 SWELLING, RASH UNDER BOTH BREASTS (POWDER APPLIED), COCCYX PINK AND BLANCHABLE. PT A/OX4, ABLE TO MAKE NEEDS KNONW. DENIES ANY CP/SOB/ NAUSEA. DENIES ANY S/S OF CURRENT DISTRESS. PT STATES SHE IS WEAK, GETS NAUSEOUS WHEN EATING, AND NEW INCONTINENCE. STATES HAD X1 LOOSE STOOL EARLIER, ON CONTACT PRECAUTIONS. NEEDS STOOL SAMPLE. PUREWICK PLACED. EDUCATED PT ON PLAN OF CARE. PT ABLE TO USE CALL LIGHT AND IS IN REACH.
[2022-07-17 03:20] LABS: BASOPHILS ABSOLUTE AUTO 0.01 K/mm3 (0.00-0.23); BASOPHILS PERCENT AUTO 0 % (0-2); EOSINOPHILS ABSOLUTE AUTO 0.24 K/mm3 (0.00-0.68); EOSINOPHILS PERCENT AUTO 8 % (0-6); Hematocrit 29.6 % (33.0-51.0); Hemoglobin 10.1 g/dL (11.5-16.0); IMMATURE GRAN ABSOLUTE AUTO 0.01 K/mm3 (0.00-0.10); IMMATURE GRAN PERCENT AUTO 0 % (0-1); LYMPHOCYTES ABSOLUTE AUTO 0.66 K/mm3 (0.84-5.20); LYMPHOCYTES PERCENT AUTO 22 % (21-46); MONOCYTES ABSOLUTE AUTO 0.18 K/mm3 (0.16-1.47); MONOCYTES PERCENT AUTO 6 % (4-13); Mean Corpuscular HGB 40.2 pg (26.0-34.0); Mean Corpuscular HGB Conc 34.1 g/dL (31.5-36.5); Mean Corpuscular Volume 118 fL (80-100); Mean Platelet Volume 12.3 fL (9.1-12.4); NEUTROPHILS ABSOLUTE AUTO 1.84 K/mm3 (1.96-9.15); NEUTROPHILS PERCENT AUTO 63 % (41-73); NRBC ABSOLUTE 0.03 K/mm3 (0.00-0.02); RDW Coefficient Variation 19.7 % (11.7-14.2); RDW Standard Deviation 80.9 fL (35.1-46.3); Red Blood Cell Count 2.51 M/mm3 (3.80-5.20); White Blood Cell Count 2.94 K/mm3 (4.00-11.30)
--- NOTE | 2022-07-17 03:37 | NUR ---
SHIFT SUMMARY NO CHANGES IN PT CONDITION SINCE ADMISSION. ABLE TO MAKE NEEDS KNOWN, CALL LIGHT IN REACH.
[2022-07-17 03:39] LABS: Albumin, Blood 2.2 g/dL (3.4-5.0); Albumin/Globulin Ratio 0.5 (0.8-1.8); Bilirubin, Total 1.6 mg/dL (0.1-1.0); Calcium, Blood 8.5 mg/dL (8.5-10.1); Globulin, Blood 4.2 g/dL (2.2-4.0); Potassium, Blood 3.7 mmol/L (3.5-5.5); Total Protein, Blood 6.4 g/dL (6.4-8.2)
[2022-07-17 03:40] LABS: Platelet Count 31 K/mm3 (150-400)
[2022-07-17 05:26] LABS: Percent Saturation 91.9 % (15.0-50.0)
[2022-07-17 10:55] LABS: International Normalized Ratio 1.39; Prothrombin Time Results 14.3 Sec (9.7-11.5)
--- NOTE | 2022-07-17 16:21 | NUR ---
SHIFT SUMMARY: PATIENT ALERT AND ORIENTED TO SELF, CURRENT LOCATION AND STAFF. PATIENT NOT ABLE TO RECALL THE SPICIFIC DATE, DAY AND MONTH. PATIENT IS FORGETFUL AND INTERMITTENT CONFUSION. THIS RN PROVIDED PATIENT c REORIENTATION. PATIENT IS CALM, PLEASANT AND COOPERATIVE c CARE. PATIENT DENIES CP/CHEST DISCOMFORT. PATIENT ON TELE, SR IN THE 80'S BPM PER INSPECTOR FINAL ASSEMBLY MECHANICALDIANNA. DENIES N/V. DENIES SOB. LUNGS CLEAR T/O TO AUSCULTATION. PATIENT ON RA c SPO2 100% T/O SHIFT. NO BM THIS SHIFT. PATIENT REPORTS THAT SHE CHECK HER BS AT HOME ONCE A DAY AND TAKES METFORMIN. CALLED DR. MORALES REGARDING PATIENT CONCERN. NO NEW ORDERS RECEIVED. VITAL SIGNS REVIEWED. IV TO R FOREARM SALINE LOCKED. BED ALARM ON FOR SAFETY AND CALL LIGHT IN REACH.
--- NOTE | 2022-07-18 03:50 | NUR ---
SHIFT SUMMARY NO OVERNIGHT EVENTS. NOTED PT TO BE MORE CONFUSED THEN PREVIOUS NIGHT. PT NOT TRACKING IN CONVERSATION. PT ORIENTED TO SELF AND PLACE, PLEASANTLY CONFUSED. CONTINUES IV ABX. PT REMAINED IN BED FOR SHIFT, CONTINUES [id number]. PUREWICK IN PLACE AND WORKING WELL. PT DID NOT HAVE A BM. NSR ON TELE. CALL LIGHT IN REACH, BED ALARM ON.
[2022-07-18 04:41] LABS: BASOPHILS ABSOLUTE AUTO 0.02 K/mm3 (0.00-0.23); BASOPHILS PERCENT AUTO 1 % (0-2); EOSINOPHILS ABSOLUTE AUTO 0.38 K/mm3 (0.00-0.68); EOSINOPHILS PERCENT AUTO 15 % (0-6); Hematocrit 25.5 % (33.0-51.0); Hemoglobin 8.7 g/dL (11.5-16.0); IMMATURE GRAN ABSOLUTE AUTO 0.01 K/mm3 (0.00-0.10); IMMATURE GRAN PERCENT AUTO 0 % (0-1); LYMPHOCYTES ABSOLUTE AUTO 0.67 K/mm3 (0.84-5.20); LYMPHOCYTES PERCENT AUTO 26 % (21-46); MONOCYTES ABSOLUTE AUTO 0.09 K/mm3 (0.16-1.47); MONOCYTES PERCENT AUTO 4 % (4-13); Mean Corpuscular HGB 39.9 pg (26.0-34.0); Mean Corpuscular HGB Conc 34.1 g/dL (31.5-36.5); Mean Corpuscular Volume 117 fL (80-100); Mean Platelet Volume 12.5 fL (9.1-12.4); NEUTROPHILS PERCENT AUTO 54 % (41-73); NRBC ABSOLUTE 0.02 K/mm3 (0.00-0.02); NRBC Auto 0.8 /100 WBC (0.0-0.2); RDW Coefficient Variation 19.6 % (11.7-14.2); RDW Standard Deviation 80.6 fL (35.1-46.3); Red Blood Cell Count 2.18 M/mm3 (3.80-5.20); White Blood Cell Count 2.57 K/mm3 (4.00-11.30)
[2022-07-18 04:58] LABS: Albumin, Blood 1.7 g/dL (3.4-5.0); Albumin/Globulin Ratio 0.5 (0.8-1.8); Bilirubin, Total 1.2 mg/dL (0.1-1.0); Bun/Creatinine Ratio 17.8 (12.0-20.0); Calcium, Blood 7.7 mg/dL (8.5-10.1); Creatinine, Blood 0.96 mg/dL (0.40-1.00); Globulin, Blood 3.4 g/dL (2.2-4.0); Platelet Count 28 K/mm3 (150-400); Potassium, Blood 3.9 mmol/L (3.5-5.5); Total Protein, Blood 5.1 g/dL (6.4-8.2)
--- NOTE | 2022-07-18 16:21 | NUR ---
SHIFT SUMMARY: NO NEW CHANGES THIS SHIFT. PATIENT A&OX3. CALM, PLEASANT AND COOPERATIVE c CARE. RECEIVED BEDBATH THIS AM. PATIENT WAS UP IN THE RECLINER CHAIR FOR LUNCH. TOLERATED SITTING UP IN THE RECLINER FOR 2 HOURS AND REQUESTED TO BE TRANSFERRED BACK IN BED. PATIENT IS 1 ASSIST c GAITBELT PIVOT TO CHAIR AND BACK TO BED. IV TO R FOREARM WAS INFILTRATED THIS PM. ICE PACK WAS APPLIED TO AFFECTED SITE. PATIENT WAS ABLE TO PARTICIPATE c PT MOBILITY TODAY. RECEIVED IV ANTIBIOTICS THIS SHIFT. VITAL SIGNS REVIEWED. PATIENT IN BED RESTING. BED ALARM ON FOR SAFETY. CALL LIGHT IN REACH.
--- NOTE | 2022-07-19 04:02 | NUR ---
SHIFT SUMMARY NO OVERNIGHT EVENTS. PT UP TO BEDSIDE COMMODE X1/2 ASSIST WITH FWW, TOLERATED WELL. PT ORIENTED X3, SELF/DATE/PLACE, FORGETFUL. EASILY RE-ORIENTED. CONTINUES IV ABX. ON CONTACT PRECAUTIONS. CALL LIGHT IN REACH, ABLE TO MAKE NEEDS KNOWN.
[2022-07-19 04:40] LABS: BASOPHILS ABSOLUTE AUTO 0.01 K/mm3 (0.00-0.23); BASOPHILS PERCENT AUTO 0 % (0-2); EOSINOPHILS ABSOLUTE AUTO 0.35 K/mm3 (0.00-0.68); EOSINOPHILS PERCENT AUTO 10 % (0-6); Hematocrit 24.7 % (33.0-51.0); Hemoglobin 8.5 g/dL (11.5-16.0); Mean Corpuscular HGB 40.3 pg (26.0-34.0); Mean Corpuscular HGB Conc 34.4 g/dL (31.5-36.5); Mean Corpuscular Volume 117 fL (80-100); Mean Platelet Volume 12.5 fL (9.1-12.4); NRBC ABSOLUTE 0.02 K/mm3 (0.00-0.02); NRBC Auto 0.6 /100 WBC (0.0-0.2); RDW Coefficient Variation 19.5 % (11.7-14.2); RDW Standard Deviation 81.4 fL (35.1-46.3); Red Blood Cell Count 2.11 M/mm3 (3.80-5.20); White Blood Cell Count 3.45 K/mm3 (4.00-11.30)
[2022-07-19 04:47] LABS: IMMATURE GRAN ABSOLUTE AUTO 0.01 K/mm3 (0.00-0.10); IMMATURE GRAN PERCENT AUTO 0 % (0-1); LYMPHOCYTES ABSOLUTE AUTO 0.88 K/mm3 (0.84-5.20); LYMPHOCYTES PERCENT AUTO 26 % (21-46); MONOCYTES ABSOLUTE AUTO 0.11 K/mm3 (0.16-1.47); MONOCYTES PERCENT AUTO 3 % (4-13); NEUTROPHILS ABSOLUTE AUTO 2.09 K/mm3 (1.96-9.15); NEUTROPHILS PERCENT AUTO 61 % (41-73); Platelet Count 40 K/mm3 (150-400)
[2022-07-19 05:02] LABS: Bun/Creatinine Ratio 18.9 (12.0-20.0); Calcium, Blood 7.7 mg/dL (8.5-10.1); Creatinine, Blood 1.06 mg/dL (0.40-1.00); Potassium, Blood 4.1 mmol/L (3.5-5.5)
[2022-07-19 06:08] LABS: COMPLEMENT C3, SERUM 88 mg/dL (82-167)
--- NOTE | 2022-07-19 12:41 | NUR ---
SPOKE WITH REGARDING CARE. ASKED IF DR COULD CALL TO DISCUSS FURTHER ABOUT DX. NOTIFIED
--- NOTE | 2022-07-19 16:42 | NUR ---
SHIFT SUMMARY- PT REPORTS EXHAUSTION TODAY. ATTEMPTED TO GET HER TO CHAIR, PT REFUSED. PT DID GET UP TO BED SIDE COMMODE. PT HAD BM. PT WEAK BUT TRANSFERED SBA +2 WITH FWW. IV INFILTERATED, L SIDE, D/C. NEW IV IN PLACE R AC, PATENT. APPETITE, POOR. VSS. NO ACUTE CHANGES THIS SHIFT. NO C/O PAIN. WILL CONTINUE TO MONITOR. CALL LIGHT INREACH, SIDE RAILS UP.
[2022-07-19 22:09] LABS: ANTI-DSDNA ANTIBODIES 1 IU/mL (0-9); RNP ANTIBODIES 3.9 AI (0.0-0.9); SJOGREN'S ANTI-SS-A <0.2 AI (0.0-0.9); SJOGREN'S ANTI-SS-B <0.2 AI (0.0-0.9); SMITH ANTIBODIES <0.2 AI (0.0-0.9)
--- NOTE | 2022-07-20 03:45 | NUR ---
SHIFT SUMMARY NO OVERNIGHT EVENTS. CONTINUES IV ABX. PT INCONTINENT DURING THE NIGHT, CHANGED BRIEFS TWICE. PT ORIENTED X3, FORGETFUL. DENIES ANY PAIN/CP OR ANY S/S OF DISTRESS. PT FORGETFUL ABOUT CALL LIGHT, FREQUENT ROUNDING TO ASSESS NEEDS.
[2022-07-20 04:56] LABS: BASOPHILS ABSOLUTE AUTO 0.01 K/mm3 (0.00-0.23); BASOPHILS PERCENT AUTO 0 % (0-2); EOSINOPHILS ABSOLUTE AUTO 0.32 K/mm3 (0.00-0.68); EOSINOPHILS PERCENT AUTO 11 % (0-6); Hemoglobin 8.3 g/dL (11.5-16.0); Mean Corpuscular HGB 40.5 pg (26.0-34.0); Mean Corpuscular HGB Conc 34.6 g/dL (31.5-36.5); Mean Corpuscular Volume 117 fL (80-100); Mean Platelet Volume 11.6 fL (9.1-12.4); NRBC ABSOLUTE 0.02 K/mm3 (0.00-0.02); NRBC Auto 0.7 /100 WBC (0.0-0.2); RDW Coefficient Variation 19.3 % (11.7-14.2); Red Blood Cell Count 2.05 M/mm3 (3.80-5.20)
[2022-07-20 05:00] LABS: IMMATURE GRAN ABSOLUTE AUTO 0.01 K/mm3 (0.00-0.10); IMMATURE GRAN PERCENT AUTO 0 % (0-1); LYMPHOCYTES ABSOLUTE AUTO 0.86 K/mm3 (0.84-5.20); LYMPHOCYTES PERCENT AUTO 31 % (21-46); MONOCYTES ABSOLUTE AUTO 0.14 K/mm3 (0.16-1.47); MONOCYTES PERCENT AUTO 5 % (4-13); NEUTROPHILS ABSOLUTE AUTO 1.46 K/mm3 (1.96-9.15); NEUTROPHILS PERCENT AUTO 52 % (41-73); Platelet Count 41 K/mm3 (150-400)
[2022-07-20 11:17] LABS: Stool Occult Blood Guaiac 1 Neg (Neg)
--- NOTE | 2022-07-20 16:44 | NUR ---
SHIFT SUMMARY NO ACUTE CHANGES THIS SHIFT. AOX2-3, ABLE TO FOLLOW DIRECTIONS AND COOPERATE. STILL APPEARS WEAK WHEN ON HER FEET BUT WAS ABLE TO TRANSFER BACK FROM THE CHAIR TO THE BED USING GB AND WALKER. PT GOT HER INTO THE CHAIR FOR LUNCH. HER STOPPED BY TO VISIT. PT IS NOW IN HER BED, NAPPING. WILL REPORT TO ONCOMING NURSE.
--- NOTE | 2022-07-21 07:04 | NUR ---
patient slept well after receiving ibuprophen for a back ache at HS. right AC IV continued to function well for antibiotics
[2022-07-21] MEDS ORDERED: VITAMIN B-121000 MCG PO (11:59)
[2022-07-21] MEDS ORDERED: VISBIOME 112.51 EACH PO (11:59)
[2022-07-21] MEDS ORDERED: DOXY100 PO (12:01)
--- NOTE | 2022-07-21 14:23 | NUR ---
DISCHARGE NOTE PT DISCHARGED TO HOME WITH BY VEHICLE. PT TAKEN TO HIS VEHICLE BY WHEELCHAIR. IV REMOVED SUCCESSFULLY. DISCHARGE EDUCATION PROVIDED AND MEDICATIONS FAXED TO THE PHARMACY OF HER CHOICE.
== END 2022-07-21 14:24 | disposition home or self-care (01) | DRG 689 ==
LOC: ER 15:22 → MEDS 07-17 00:09
PROVIDERS: Internal Medicine; Physician Assistant; Student in an Organized Health Care Education/Training Program; ADMIT Family Medicine
DX: N39.0 Urinary tract infection, site not specified (principal); D61.810 Antineoplastic chemotherapy induced pancytopenia; R18.8 Other ascites; I50.32 Chronic diastolic (congestive) heart failure; E44.0 Moderate protein-calorie malnutrition; I82.502 Chronic embolism and thrombosis of unspecified deep veins of left lower extremity; Z16.29 Resistance to other single specified antibiotic; K74.60 Unspecified cirrhosis of liver; Z66 Do not resuscitate; M06.9 Rheumatoid arthritis, unspecified; E11.9 Type 2 diabetes mellitus without complications; E03.9 Hypothyroidism, unspecified; M54.9 Dorsalgia, unspecified; E80.6 Other disorders of bilirubin metabolism; R26.2 Difficulty in walking, not elsewhere classified; G89.29 Other chronic pain; T45.1X5A Adverse effect of antineoplastic and immunosuppressive drugs, initial encounter; D51.9 Vitamin B12 deficiency anemia, unspecified; D53.9 Nutritional anemia, unspecified; K75.4 Autoimmune hepatitis; D75.89 Other specified diseases of blood and blood-forming organs; E88.09 Other disorders of plasma-protein metabolism, not elsewhere classified; B96.20 Unspecified Escherichia coli [E. coli] as the cause of diseases classified elsewhere; Z96.643 Presence of artificial hip joint, bilateral; Z88.0 Allergy status to penicillin; Z88.5 Allergy status to narcotic agent; Z86.79 Personal history of other diseases of the circulatory system; Z87.442 Personal history of urinary calculi; Z88.2 Allergy status to sulfonamides; Z88.8 Allergy status to other drugs, medicaments and biological substances; Z91.048 Other nonmedicinal substance allergy status; Z79.899 Other long term (current) drug therapy; Z79.01 Long term (current) use of anticoagulants; Z86.711 Personal history of pulmonary embolism; Z87.19 Personal history of other diseases of the digestive system; Z86.010 Personal history of colon polyps; Z98.890 Other specified postprocedural states; Z90.49 Acquired absence of other specified parts of digestive tract; Z90.710 Acquired absence of both cervix and uterus; Z87.891 Personal history of nicotine dependence; Z68.29 Body mass index [BMI] 29.0-29.9, adult
CPT/HCPCS: 31720; 36415; 74177; 80048; 80053; 81001; 82272; 82607; 82728; 82746; 83540; 83550; 83605; 83735; 85025; 85520; 85610; 86160; 86225; 86235; 86381; 87040; 87077; 87086; 87186; 93306; 93971; 97110; 97116; 97162; 97530; 99285-25; A9270; J0696; J2405; J3420; J7050; P9612; Q9967